=== PATIENT | female | born 1930 | race Caucasian/White ===

== ENCOUNTER 2017-09-06 14:45 | Inpatient (IN) | payer MEDICARE ==
[~2017-09-06] VITALS: Ht 160 cm; Wt 61.2 kg
[~2017-09-06 14:45] MED LIST: KEPPRA500 MG PO; LEVAQUIN500 MG PO; LEVETIRACETAM500 MG PO; LEVOTHYROXINE50 MCG PO; LOVENOX; MEROPENEM; MUCINEX DM ER1 EACH PO; NITROFURANTOIN100 MG PO; NYSTATIN1 EAC1; POLYETHYLENE GL17 GM PO
[2017-09-06 16:09] LABS: BASOPHILS # (AUTO) 0.1 (0.0-0.1); BASOPHILS % 0.3 % (0.0-1.0); EOSINOPHILS # (AUTO) 0.1 (0.0-0.4); EOSINOPHILS % 0.3 % (0.0-6.0); HEMATOCRIT 28.6 % (34.2-44.1); HEMOGLOBIN 9.6 g/dL (12.0-16.0); LYMPHOCYTES # (AUTO) 1.7 (1.0-3.2); LYMPHOCYTES % 9.7 % (18.0-39.1); MEAN CORPUSCULAR HEMOGLOBIN 29.7 pg (28-32); MEAN CORPUSCULAR HGB CONC 33.6 g/dL (31-35); MEAN CORPUSCULAR VOLUME 88.5 fL (81-99); MONOCYTES # (AUTO) 1.2 (0.2-0.8); MONOCYTES % 6.9 % (4.4-11.3); NEUTROPHILS # (AUTO) 13.7 (2.1-6.9); NEUTROPHILS % 80.2 % (38.7-80.0); PLATELET COUNT 320 x10e3/uL (140-360); RED BLOOD COUNT 3.23 x10e6/uL (3.6-5.1); RED CELL DISTRIBUTION WIDTH 14.2 % (11.7-14.4)
[2017-09-06 16:26] LABS: ALANINE AMINOTRANSFERASE 15 IU/L (0-55); ALBUMIN 3.2 g/dL (3.5-5.0); ALBUMIN/GLOBULIN RATIO 0.9 (0.8-2.0); ALKALINE PHOSPHATASE 97 IU/L (40-150); BLOOD UREA NITROGEN 18 mg/dL (7-26); BUN/CREATININE RATIO 23 (6-25); CALCIUM 8.8 mg/dL (8.4-10.2); CARBON DIOXIDE 25 mmol/L (22-29); CHLORIDE 89 mmol/L (98-107); CREATININE, SERUM 0.79 mg/dL (0.57-1.11); EST GLOMERULAR FILTRATION RATE > 60 ML/MIN (60-); GLUCOSE 116 mg/dL (74-118); SODIUM 124 mmol/L (136-145)
--- NOTE | 2017-09-06 16:39 | Diagnostic Imaging Report ---
Exam: Head CT without contrast History: Fall Comparison studies: Head CT 01/21/2017 Technique: Axial images were obtained from the skull base to the vertex. Coronal and sagittal images reconstructed from the axial data. Intravenous contrast: None Findings: Scalp/bones: Unchanged right frontal tanvir hole. Brain sulci: Appropriate for age. Ventricles: There is a stable right frontal approach ventriculostomy catheter which courses through the frontal horn of the right lateral ventricle through the septum pellucidum with tip terminating near the left foramen of Monro. There is stable appearance of the ventricular system. 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 Parenchyma: There is stable cortical encephalomalacia in the right frontal lobe along the catheter tract. Scatter hypodensities in the periventricular and deep cerebral white matter are small vessel ischemic changes. There is stable hypodensity in the left subinsular region which may reflect a chronic lacunar infarct versus prominent perivascular space. Sellar/suprasellar region: Stable hyperdense and enlargement of the hypophysis measuring up to 13 mm. Craniocervical junction: Patent foramen magnum. No Chiari one malformation. Incidental findings: Carotid siphons atherosclerotic calcification. IMPRESSION: 1. No acute intracranial abnormalities. 2. 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 3. Stable right frontal ventriculostomy catheter with no interval change in size of the ventricular system. 4. Mild supratentorial white matter small vessel ischemic changes and mild generalized cerebral volume loss. 5. Stable prominent hyperdense pituitary gland. Preliminary report was provided by neuroradiology fellow, Dr.Thach Shalini MD on 09/06/2017 5:30 PM. I have reviewed the images and agree with the findings in the preliminary report. Signed by: Dr. Crista Martin M.D. on 09/06/2017 9:02 PM
--- NOTE | 2017-09-06 18:02 | Diagnostic Imaging Report ---
TECHNIQUE: Magnetic resonance imaging of the pelvis and right hip was performed WITHOUT injected contrast using standard departmental protocols. HISTORY: Pain, fall COMPARISON: None. FINDINGS: Bone and bone marrow: Linear marrow edema within the intertrochanteric region. Bilateral sacral fractures. Nondisplaced right superior and inferior pubic ramus fractures. Nondisplaced left pubis fracture. Hip joint: Mild degenerative arthrosis of the right hip joint with labral fraying and partial-thickness cartilage loss and effusion. Left total hip arthroplasty with extensive hardware artifact. Soft tissues: The visualized tendons appear intact. IMPRESSION: Nondisplaced incomplete intertrochanteric fracture of the right femur. Insufficiency fractures: Nondisplaced bilateral sacral fractures. Nondisplaced right superior and inferior pubic ramus fracture and left left pubis fracture. Signed by: Dr. Dilshad Doan M.D. on 09/06/2017 5:58 PM
[2017-09-06 22:15] LABS: BILIRUBIN,URINE NEGATIVE (NEGATIVE); CLARITY,URINE CLEAR (CLEAR); COLOR,URINE YELLOW (YELLOW); KETONES,URINE NEGATIVE (NEGATIVE); LEUKOCYTE ESTERASE ,URINE NEGATIVE (NEGATIVE); NITRITE,URINE NEGATIVE (NEGATIVE); URINE UROBILINOGEN 0.2 mg/dL (0.2 - 1)
[2017-09-06 22:16] LABS: PROTEIN,URINE DIPSTICK 1+ (NEGATIVE)
[2017-09-06 22:26] LABS: BACTERIA,URINE MODERATE /HPF; EPITHELIAL CELLS,URINE FEW /LPF
--- NOTE | 2017-09-06 22:33 | Diagnostic Imaging Report ---
EXAMINATION: CHEST SINGLE (PORTABLE) INDICATION: Shortness of breath COMPARISON: 07/20/2017 FINDINGS: TUBES and LINES: Right-sided ENDLESS TRACK VEHICLE MECHANIC shunt catheter visualized. LUNGS: Lungs are not well inflated. There are bibasilar atelectasis. There is no evidence of pneumonia or pulmonary edema. PLEURA: No pleural effusion or pneumothorax. HEART AND MEDIASTINUM: Cardiac size is mildly enlarged. There are atherosclerotic calcifications within the aorta. BONES AND SOFT TISSUES: No acute osseous lesion. Breast implants are visualized. Soft tissues are unremarkable. UPPER ABDOMEN: No free air under the diaphragm. IMPRESSION: No acute thoracic abnormality. Signed by: Dr. Tree Jin M.D. on 09/06/2017 10:30 PM
[2017-09-06] MEDS ORDERED: SODIUM CHLORIDE FLUSH 10 ML SYR INJ PRN (22:45)
[2017-09-06] MEDS ORDERED: HYDROMORPHONE 1MG/1ML INJ IV PRN (22:45)
[2017-09-06] MEDS ORDERED: ONDANSETRON HCL INJ 2 MG/ML VIAL IV PRN (22:45)
[2017-09-07] VITALS (7 sets, daily range): BP systolic 104–145; BP diastolic 56–73
[2017-09-07] MEDS: LEVOFLOXACIN 500MG/D5W 100ML 100 ML IV SCH ×2 (01:14→21:33)
[2017-09-07] MEDS ORDERED: SODIUM CHLORIDE 0.9% 250ML 250 ML ONE (01:42)
[2017-09-07 06:01] LABS: BASOPHILS # (AUTO) 0.1 (0.0-0.1); BASOPHILS % 0.4 % (0.0-1.0); EOSINOPHILS # (AUTO) 0.3 (0.0-0.4); EOSINOPHILS % 2.1 % (0.0-6.0); HEMATOCRIT 25.3 % (34.2-44.1); HEMOGLOBIN 8.6 g/dL (12.0-16.0); LYMPHOCYTES # (AUTO) 1.9 (1.0-3.2); LYMPHOCYTES % 15.7 % (18.0-39.1); MEAN CORPUSCULAR HEMOGLOBIN 29.9 pg (28-32); MEAN CORPUSCULAR VOLUME 87.8 fL (81-99); MONOCYTES # (AUTO) 1.1 (0.2-0.8); MONOCYTES % 9.2 % (4.4-11.3); NEUTROPHILS # (AUTO) 8.6 (2.1-6.9); NEUTROPHILS % 70.6 % (38.7-80.0); PLATELET COUNT 279 x10e3/uL (140-360); RED BLOOD COUNT 2.88 x10e6/uL (3.6-5.1); RED CELL DISTRIBUTION WIDTH 14.1 % (11.7-14.4)
[2017-09-07 06:31] LABS: ALANINE AMINOTRANSFERASE 15 IU/L (0-55); ALBUMIN 2.7 g/dL (3.5-5.0); ALBUMIN/GLOBULIN RATIO 0.8 (0.8-2.0); ALKALINE PHOSPHATASE 87 IU/L (40-150); BLOOD UREA NITROGEN 18 mg/dL (7-26); BUN/CREATININE RATIO 24 (6-25); CALCIUM 8.4 mg/dL (8.4-10.2); CARBON DIOXIDE 26 mmol/L (22-29); CHLORIDE 93 mmol/L (98-107); CREATININE, SERUM 0.74 mg/dL (0.57-1.11); EST GLOMERULAR FILTRATION RATE > 60 ML/MIN (60-); GLUCOSE 101 mg/dL (74-118); SODIUM 126 mmol/L (136-145)
[2017-09-07] MEDS ORDERED: GUAIFENESIN 600MG/DEXTROMETHORPHAN 30MG TABSR PO SCH (14:00)
[2017-09-07] MEDS: GUAIFENESIN 600MG/DEXTROMETHORPHAN 30MG TABSR PO SCH ×2 (15:48→21:33)
[2017-09-07] MEDS: LEVETIRACETAM 500 MG TAB PO SCH (15:48)
[2017-09-07] MEDS: BALSAM PERU/CASTOR OIL 60 GM OINT...G. TP SCH (17:00)
[2017-09-07] MEDS: NYSTATIN 15 GM POWDER UD BTL TOP SCH (18:24)
[2017-09-08] VITALS: BP 114/58
[2017-09-08 04:00] VITALS: BP 149/65
[2017-09-08] MEDS: LEVOTHYROXINE SODIUM 50 MCG TAB PO SCH (05:28)
[2017-09-08] MEDS: GUAIFENESIN 600MG/DEXTROMETHORPHAN 30MG TABSR PO SCH ×3 (05:28→21:39)
[2017-09-08 06:26] LABS: BASOPHILS % 0.3 % (0.0-1.0); EOSINOPHILS # (AUTO) 0.2 (0.0-0.4); EOSINOPHILS % 1.4 % (0.0-6.0); HEMATOCRIT 24.1 % (34.2-44.1); HEMOGLOBIN 8.1 g/dL (12.0-16.0); LYMPHOCYTES # (AUTO) 2.1 (1.0-3.2); LYMPHOCYTES % 18.8 % (18.0-39.1); MEAN CORPUSCULAR HEMOGLOBIN 29.6 pg (28-32); MEAN CORPUSCULAR HGB CONC 33.6 g/dL (31-35); MONOCYTES % 8.9 % (4.4-11.3); NEUTROPHILS # (AUTO) 7.7 (2.1-6.9); NEUTROPHILS % 68.7 % (38.7-80.0); PLATELET COUNT 284 x10e3/uL (140-360); RED BLOOD COUNT 2.74 x10e6/uL (3.6-5.1); RED CELL DISTRIBUTION WIDTH 14.3 % (11.7-14.4)
[2017-09-08 06:51] LABS: ANION GAP 8.7 mmol/L (8-16); BLOOD UREA NITROGEN 18 mg/dL (7-26); BUN/CREATININE RATIO 26 (6-25); CALCIUM 8.1 mg/dL (8.4-10.2); CARBON DIOXIDE 26 mmol/L (22-29); CHLORIDE 95 mmol/L (98-107); EST GLOMERULAR FILTRATION RATE > 60 ML/MIN (60-); GLUCOSE 93 mg/dL (74-118); POTASSIUM 3.7 mmol/L (3.5-5.1); SODIUM 126 mmol/L (136-145)
[2017-09-08 08:00] VITALS: BP 138/77
[2017-09-08] MEDS: LEVETIRACETAM 500 MG TAB PO SCH ×2 (08:55→17:50)
[2017-09-08] MEDS: POLYETHYLENE GLYCOL 3350 17 GM PACK PO SCH (08:55)
[2017-09-08] MEDS: NYSTATIN 15 GM POWDER UD BTL TOP SCH ×2 (08:56→16:49)
[2017-09-08] MEDS: BALSAM PERU/CASTOR OIL 60 GM OINT...G. TP SCH ×2 (08:56→16:49)
[2017-09-08] MEDS ORDERED: LEVOTHYROXINE SODIUM 50 MCG TAB PO SCH (09:00)
[2017-09-08] MEDS ORDERED: HYDROMORPHONE 2MG/ML INJ IV PRN (09:15)
[2017-09-08 12:00] VITALS: BP 118/56
[2017-09-08] MEDS ORDERED: CLINDAMYCIN PHOS 900MG/ D5W 50 50 ML IV ONE (12:30)
[2017-09-08 16:00] VITALS: BP 120/67
[2017-09-08 20:00] VITALS: BP 126/75
[2017-09-08] MEDS: LEVOFLOXACIN 500MG/D5W 100ML 100 ML IV SCH (21:39)
[2017-09-08] MEDS ORDERED: SODIUM CHLORIDE 0.9% 1000ML 1,000 ML IV SCH (23:59)
[2017-09-09] VITALS: BP 101/55
[2017-09-09 04:00] VITALS: BP 144/66
[2017-09-09] MEDS: LEVOTHYROXINE SODIUM 50 MCG TAB PO SCH (05:30)
[2017-09-09] MEDS: GUAIFENESIN 600MG/DEXTROMETHORPHAN 30MG TABSR PO SCH ×3 (05:30→22:11)
[2017-09-09 08:00] VITALS: BP 122/56
[2017-09-09] MEDS: POLYETHYLENE GLYCOL 3350 17 GM PACK PO SCH (09:02)
[2017-09-09] MEDS: BALSAM PERU/CASTOR OIL 60 GM OINT...G. TP SCH ×2 (09:02→17:17)
[2017-09-09] MEDS: NYSTATIN 15 GM POWDER UD BTL TOP SCH ×2 (09:02→17:17)
[2017-09-09] MEDS: LEVETIRACETAM 500 MG TAB PO SCH ×2 (09:02→17:16)
[2017-09-09 12:00] VITALS: BP 86/38
[2017-09-09 16:00] VITALS: BP 130/58
[2017-09-09] MEDS: SODIUM CHLORIDE 1 GM TAB PO SCH (17:19)
[2017-09-09] MEDS: ENOXAPARIN SOD INJ 40 MG/0.4 ML SYR SC SCH (17:19)
[2017-09-09 20:00] VITALS: BP 133/65
[2017-09-09] MEDS: LEVOFLOXACIN 500MG/D5W 100ML 100 ML IV SCH (22:11)
[2017-09-10] VITALS (8 sets, daily range): BP systolic 119–149; BP diastolic 57–74
[2017-09-10] MEDS: LEVOTHYROXINE SODIUM 50 MCG TAB PO SCH (05:10)
[2017-09-10] MEDS: GUAIFENESIN 600MG/DEXTROMETHORPHAN 30MG TABSR PO SCH ×3 (05:12→22:18)
[2017-09-10 06:34] LABS: BASOPHILS # (AUTO) 0.1 (0.0-0.1); BASOPHILS % 0.4 % (0.0-1.0); EOSINOPHILS # (AUTO) 0.2 (0.0-0.4); EOSINOPHILS % 1.7 % (0.0-6.0); HEMATOCRIT 23.6 % (34.2-44.1); LYMPHOCYTES # (AUTO) 2.4 (1.0-3.2); LYMPHOCYTES % 17.7 % (18.0-39.1); MEAN CORPUSCULAR HEMOGLOBIN 29.5 pg (28-32); MEAN CORPUSCULAR HGB CONC 33.1 g/dL (31-35); MEAN CORPUSCULAR VOLUME 89.4 fL (81-99); MONOCYTES # (AUTO) 1.1 (0.2-0.8); MONOCYTES % 8.2 % (4.4-11.3); NEUTROPHILS # (AUTO) 9.5 (2.1-6.9); NEUTROPHILS % 70.3 % (38.7-80.0); PLATELET COUNT 343 x10e3/uL (140-360); RED BLOOD COUNT 2.64 x10e6/uL (3.6-5.1); RED CELL DISTRIBUTION WIDTH 14.4 % (11.7-14.4)
[2017-09-10 06:54] LABS: HEMOGLOBIN 7.8 g/dL (12.0-16.0)
[2017-09-10 06:58] LABS: ALANINE AMINOTRANSFERASE 15 IU/L (0-55); ALBUMIN 2.2 g/dL (3.5-5.0); ALBUMIN/GLOBULIN RATIO 0.8 (0.8-2.0); ALKALINE PHOSPHATASE 93 IU/L (40-150); ANION GAP 9.6 mmol/L (8-16); BLOOD UREA NITROGEN 15 mg/dL (7-26); BUN/CREATININE RATIO 23 (6-25); CALCIUM 7.9 mg/dL (8.4-10.2); CARBON DIOXIDE 24 mmol/L (22-29); CHLORIDE 102 mmol/L (98-107); CREATININE, SERUM 0.65 mg/dL (0.57-1.11); EST GLOMERULAR FILTRATION RATE > 60 ML/MIN (60-); GLUCOSE 90 mg/dL (74-118); POTASSIUM 3.6 mmol/L (3.5-5.1); SODIUM 132 mmol/L (136-145)
[2017-09-10 07:09] LABS: BLOOD UREA NITROGEN 15 mg/dL (7-26); GLUCOSE 90 mg/dL (74-118); OSMOLALITY,SERUM 265 mOsm/kg (278-305); SODIUM 132 mmol/L (136-145)
[2017-09-10] MEDS ORDERED: FUROSEMIDE INJ 10 MG/ML 2 ML VIAL IV SCH (07:45)
[2017-09-10] MEDS ORDERED: SODIUM CHLORIDE 0.9% 250ML 250 ML IV ONE (08:30)
[2017-09-10] MEDS ORDERED: SODIUM CHLORIDE 1 GM TAB PO SCH (09:00)
[2017-09-10] MEDS: POLYETHYLENE GLYCOL 3350 17 GM PACK PO SCH (10:15)
[2017-09-10] MEDS: LEVETIRACETAM 500 MG TAB PO SCH ×2 (10:15→17:45)
[2017-09-10] MEDS: BALSAM PERU/CASTOR OIL 60 GM OINT...G. TP SCH ×2 (10:15→17:45)
[2017-09-10] MEDS: SODIUM CHLORIDE 1 GM TAB PO SCH (10:15)
[2017-09-10] MEDS: NYSTATIN 15 GM POWDER UD BTL TOP SCH ×2 (10:15→17:45)
[2017-09-10 13:03] LABS: FREE THYROXINE INDEX 1.9161 (1.4-3.8); THYROID STIMULATING HORMONE 5.601 uIU/mL (0.350-4.940)
[2017-09-10] MEDS ORDERED: SODIUM CHLORIDE 0.9% 250ML 250 ML ONE ×3 (14:01→20:02)
[2017-09-10] MEDS ORDERED: DIPHENHYDRAMINE HCL INJ 50 MG/ML VIAL IV ONE (15:15)
[2017-09-10] MEDS ORDERED: ACETAMINOPHEN 325 MG TAB PO ONE (15:15)
--- NOTE | 2017-09-10 15:40 | Consultation ---
DATE OF CONSULTATION: September 10, 2017 NEPHROLOGY CONSULT REASON FOR ADMISSION: Falls and hip fracture. REASON FOR CONSULTATION: Hyponatremia. HISTORY OF PRESENT ILLNESS: Ms. Riggs is a very poor historian. Most of the history was obtained from chart review. Patient is an 86-year-old lady with a past medical history of brain tumor, seizure disorder, hypothyroidism, and recurrent UTI, who was admitted with increased weakness and fragility and difficulty to ambulate and had a fall at home. Mobile x-rays at home times 2 showed negative fracture and the MRI here showed that she had an intertrochanteric fracture. So far, per chart review, patient seems to have refused any kind of surgical intervention. Patient was initially noted to be hyponatremic on admission at 124 and she was started on NS and sodium, had initially improved to 126; however, had been stuck at 126 in the last couple of days and hence, her NS was stopped and she was started on sodium chloride 2 g daily tablet on the 09/09/2017 and today, her sodium is 132 and we have been consulted to assist with management of her hyponatremia. Her urine sodium was 96; however, this was after receiving a dose of sodium chloride in the morning, so unsure. Her specific gravity of the urine was a little on the higher side, so likely she was hypovolemic when she arrived and currently, she is needing assistance for feeding and appears to have severe dementia to the point where she does not recall much of her history and does not remember anything of what appended prior to coming in here. At this time, she denies any complaints and currently, she has a sitter who is feeding her. PAST MEDICAL HISTORY 1. Brain tumor. 2. Hypothyroidism. 3. Seizure disorder. 4. Recurrent UTI. PAST SURGICAL HISTORY: Has had GUT PULLER shunt placed and status post hip surgery in the past and bilateral mastectomy. SOCIAL HISTORY: No alcohol, drug or smoking use at this time. FAMILY HISTORY: Noncontributory. ALLERGIES: LISTED IN THE ELECTRONIC MEDICAL RECORD. MEDICATIONS: Reviewed in electronic medical record. REVIEW OF SYSTEMS: Unable to perform a review of system at this time as patient denies any complaints and unclear if that is accurate and unclear as to how oriented she is. PHYSICAL EXAMINATION VITAL SIGNS: Temperature 99.2, pulse rate 72 per minute, respiratory rate 18 per minute, blood pressure 142/66. GENERAL: Resting comfortably in bed. HEENT: Normocephalic, atraumatic. Moist mucous membranes. RESPIRATORY: Clear breath sounds. CARDIOVASCULAR: Regular rate and rhythm. GASTROINTESTINAL: Abdomen is soft and nontender. MUSCULOSKELETAL: No lower extremity edema. NEUROLOGICAL: Appears confused. LABORATORY DATA: Sodium 132, potassium 3.6, chloride 102, was 95 on 09/08/2017, bicarb 24, BUN 15, creatinine 0.65, serum osmolality low at 265, iron 28, TIBC 179, percent saturation 16, transferrin 128, albumin at 2.2, urine osmolality pending. Urine random sodium 96, specific gravity 1.015, protein 1+, 2+ blood, 11-20 rbc's, moderate bacteria. WBC count 13.51, hemoglobin 7.8, platelet count 343, is receiving blood transfusion today. IMAGING: Reviewed brain CT and MRI of hip and pelvis IMPRESSION AND PLAN 1. Euvolemic hyponatremia, likely secondary to poor solute intake versus syndrome of inappropriate secretion of antidiuretic hormone. Will follow up urine osmolality. Agree with discontinuing IVF and continuing with sodium chloride tablets as of now and encouraging p.o. 2. Hypothyroidism. Agreeing with checking TSH, T3, T4. Will follow up results. 3. Hip fracture, as per primary care. 4. Seizure disorder, on medications. Thank you very much, Dr. Freeman and Dr. Beaver, for this consult. I will be happy to follow this patient with you. Job#: [id number] VAS
[2017-09-10] MEDS: ENOXAPARIN SOD INJ 40 MG/0.4 ML SYR SC SCH (17:45)
[2017-09-10] MEDS: FERROUS SULFATE 325 MG TAB PO SCH (17:45)
[2017-09-10] MEDS: LEVOFLOXACIN 500MG/D5W 100ML 100 ML IV SCH (23:38)
[2017-09-11] VITALS (7 sets, daily range): BP systolic 116–169; BP diastolic 58–88
[2017-09-11] MEDS: LEVOTHYROXINE SODIUM 50 MCG TAB PO SCH (06:09)
[2017-09-11] MEDS: GUAIFENESIN 600MG/DEXTROMETHORPHAN 30MG TABSR PO SCH ×3 (06:09→22:00)
[2017-09-11 06:22] LABS: ANION GAP 11.8 mmol/L (8-16); BLOOD UREA NITROGEN 18 mg/dL (7-26); BUN/CREATININE RATIO 27 (6-25); CALCIUM 8.2 mg/dL (8.4-10.2); CARBON DIOXIDE 25 mmol/L (22-29); CHLORIDE 98 mmol/L (98-107); CREATININE, SERUM 0.67 mg/dL (0.57-1.11); EST GLOMERULAR FILTRATION RATE > 60 ML/MIN (60-); GLUCOSE 87 mg/dL (74-118); POTASSIUM 3.8 mmol/L (3.5-5.1); SODIUM 131 mmol/L (136-145)
[2017-09-11 07:30] LABS: BASOPHILS # (AUTO) 0.1 (0.0-0.1); BASOPHILS % 0.7 % (0.0-1.0); EOSINOPHILS # (AUTO) 0.4 (0.0-0.4); EOSINOPHILS % 3.5 % (0.0-6.0); HEMATOCRIT 30.7 % (34.2-44.1); HEMOGLOBIN 10.7 g/dL (12.0-16.0); LYMPHOCYTES # (AUTO) 2.3 (1.0-3.2); LYMPHOCYTES % 19.7 % (18.0-39.1); MEAN CORPUSCULAR HEMOGLOBIN 30.2 pg (28-32); MEAN CORPUSCULAR HGB CONC 34.9 g/dL (31-35); MEAN CORPUSCULAR VOLUME 86.7 fL (81-99); MONOCYTES # (AUTO) 0.9 (0.2-0.8); MONOCYTES % 7.6 % (4.4-11.3); NEUTROPHILS # (AUTO) 7.7 (2.1-6.9); NEUTROPHILS % 67.1 % (38.7-80.0); PLATELET COUNT 315 x10e3/uL (140-360); RED BLOOD COUNT 3.54 x10e6/uL (3.6-5.1); RED CELL DISTRIBUTION WIDTH 14.6 % (11.7-14.4)
[2017-09-11] MEDS: FERROUS SULFATE 325 MG TAB PO SCH ×2 (08:00→17:00)
[2017-09-11] MEDS: BALSAM PERU/CASTOR OIL 60 GM OINT...G. TP SCH ×2 (09:00→17:00)
[2017-09-11] MEDS: NYSTATIN 15 GM POWDER UD BTL TOP SCH ×2 (09:00→17:00)
[2017-09-11] MEDS: SODIUM CHLORIDE 1 GM TAB PO SCH (09:00)
[2017-09-11] MEDS: POLYETHYLENE GLYCOL 3350 17 GM PACK PO SCH (09:00)
[2017-09-11] MEDS: LEVETIRACETAM 500 MG TAB PO SCH ×2 (09:00→17:00)
[2017-09-11] MEDS: ENOXAPARIN SOD INJ 40 MG/0.4 ML SYR SC SCH (17:00)
[2017-09-11] MEDS ORDERED: LINEZOLID 600 MG/D5W 300ML 300 ML IV ONE (19:15)
[2017-09-11] MEDS: LEVOFLOXACIN 500MG/D5W 100ML 100 ML IV SCH (22:32)
[2017-09-11] MEDS ORDERED: SODIUM CHLORIDE 0.9% 1000ML 1,000 ML IV SCH (23:59)
[2017-09-12] VITALS (9 sets, daily range): BP systolic 117–168; BP diastolic 56–68
[2017-09-12] MEDS ORDERED: PANTOPRAZOLE 40 MG 10ML VIAL IV STA (01:14)
[2017-09-12] MEDS ORDERED: PANTOPRAZOLE 40 MG 10ML VIAL IV SCH (01:15)
[2017-09-12] MEDS: LEVOTHYROXINE SODIUM 50 MCG TAB PO SCH (05:13)
[2017-09-12] MEDS: GUAIFENESIN 600MG/DEXTROMETHORPHAN 30MG TABSR PO SCH ×3 (05:13→20:34)
[2017-09-12 06:33] LABS: ANION GAP 9.7 mmol/L (8-16); BLOOD UREA NITROGEN 20 mg/dL (7-26); BUN/CREATININE RATIO 28 (6-25); CALCIUM 8.2 mg/dL (8.4-10.2); CARBON DIOXIDE 27 mmol/L (22-29); CHLORIDE 99 mmol/L (98-107); CREATININE, SERUM 0.72 mg/dL (0.57-1.11); EST GLOMERULAR FILTRATION RATE > 60 ML/MIN (60-); GLUCOSE 90 mg/dL (74-118); POTASSIUM 3.7 mmol/L (3.5-5.1); SODIUM 132 mmol/L (136-145)
[2017-09-12] MEDS: FERROUS SULFATE 325 MG TAB PO SCH ×2 (08:00→17:38)
[2017-09-12] MEDS: BALSAM PERU/CASTOR OIL 60 GM OINT...G. TP SCH ×2 (09:00→17:39)
[2017-09-12] MEDS: POLYETHYLENE GLYCOL 3350 17 GM PACK PO SCH (09:00)
[2017-09-12] MEDS: NYSTATIN 15 GM POWDER UD BTL TOP SCH ×2 (09:00→20:30)
[2017-09-12] MEDS: PANTOPRAZOLE 40 MG 10ML VIAL IV SCH ×2 (09:00→20:34)
[2017-09-12] MEDS: LEVETIRACETAM 500 MG TAB PO SCH ×2 (09:00→17:38)
[2017-09-12] MEDS ORDERED: LINEZOLID 600 MG/D5W 300ML 300 ML IV ONE (10:30)
[2017-09-12] MEDS ORDERED: BUPIVACAINE HCL 0.5% INJ 30 ML VIAL INJ ONE (12:48)
[2017-09-12] MEDS ORDERED: FENTANYL CITRATE/PF 100MCG/2 ML INJ ONE (14:08)
--- NOTE | 2017-09-12 15:57 | Diagnostic Imaging Report ---
PROCEDURE:HIP RIGHT 2-3 VW (+/- PELVIS) COMPARISON:None. INDICATIONS:POST RIGHT HIP GAMMA NAIL FINDINGS: See conclusion CONCLUSION: 1. Status post right hip Gamma nail placement. Orthopedic hardware is intact. Metallic deonte and soft tissue gas consistent with postoperative changes. 2. The patient is status post left total hip replacement. 3. Extensive vascular calcifications. 4. Generalized osteopenia. Degenerative changes in the right hip joint. Kristopher Young M.D. Dictated by: Kristopher Young M.D. on 09/12/2017 at 16:05 Electronically approved by: Kristopher Young M.D. on 09/12/2017 at 16:05
--- NOTE | 2017-09-12 16:39 | Operative Report ---
DATE OF PROCEDURE: September 12, 2017 PREOPERATIVE DIAGNOSIS: Right nondisplaced intertrochanteric hip fracture. POSTOPERATIVE DIAGNOSIS: Right nondisplaced intertrochanteric hip fracture. PROCEDURE PERFORMED: Right short Gamma nail. CHALK MOLDING MACHINE OPERATOR: Elba Wilson ANESTHESIA: General endotracheal intubation anesthesia. IV FLUIDS: Per the anesthesia record. DESCRIPTION OF PROCEDURE: Ms. Riggs was taken to the operating room and placed in the supine position on the fracture table. Following induction of general anesthesia as well as endotracheal intubation, the patient's right lower extremity was placed in well-padded longitudinal traction, and the left lower extremity placed in well-padded lithotomy position. Fluoroscopic evaluation of the patient's hip joint demonstrated no clear evidence of injury. The patient had a preoperative MRI examination that confirmed edema and a partial fracture through the intertrochanteric region of the hip. The patient's lower extremity was prepped and draped in standard surgical fashion. Case was begun by creating an incision roughly at the level of the tip of the greater trochanter. This incision was carried through skin only. Blunt dissection was used to deepen the incision to the level of the tip of the trochanter. A cannulated awl was placed on the tip of the trochanter. The position of the awl was confirmed using fluoroscopy in both AP and lateral planes. The awl was then advanced within the femur. Again, the position of the awl was checked using fluoroscopy in both AP and lateral planes. A guidewire was then placed within the femoral canal. A one-step reamer was used to create a channel for the implant. An implant was chosen and inserted without difficulty. A 2nd incision was created on the lateral aspect of the femur, and this incision was again deepened to the level of the lateral aspect of the femur. The guide for the guide pin was advanced against the lateral aspect of the femur, and a guide pin was advanced from lateral to medial through the neck into the head of the femur. The position of the guide pin was checked in both AP and lateral planes and found to be appropriate. Measurements were taken, and a reamer was used to create a channel for the implant. A compression screw was then advanced over the guidewire, and compression was placed across the patient's fracture site. The compression screw was then locked to allow for further compression but to prevent rotation. The short nail was then locked with a single screw distally. The nail was then visualized in its entirety and found to be appropriately placed. All wounds were copiously irrigated, and the wounds were closed in a multilayer fashion. Sterile dressings were applied. The patient was then awakened and taken to the postanesthesia care unit in stable condition. Elba Wilson acted as first aid instructor for this case and was necessary for both prepping and draping the patient as well as retraction of soft tissues that allowed this case to be successful. Job#: [id number]
[2017-09-12] MEDS: SODIUM CHLORIDE 0.9% 1000ML 1,000 ML IV SCH ×2 (17:38→20:30)
[2017-09-12] MEDS ORDERED: SEVOFLURANE INHAL SOLN 250 ML PEN BTL ONE (18:01)
[2017-09-12] MEDS ORDERED: ONDANSETRON HCL INJ 2 MG/ML VIAL ONE (18:01)
[2017-09-12] MEDS ORDERED: GLYCOPYRROLATE INJ 1MG/ 5 ML SYR ONE (18:01)
[2017-09-12] MEDS ORDERED: EPHEDRINE SULFATE INJ 50 MG/10 ML SYR ONE (18:01)
[2017-09-12] MEDS ORDERED: ROCURONIUM BROMIDE 10 MG/ML 5ML VIAL ONE (18:01)
[2017-09-12] MEDS ORDERED: DEXAMETHASONE SOD PHOS INJ 4 MG/ML VIAL ONE (18:01)
[2017-09-12] MEDS ORDERED: NEOSTIGMINE 5 MG/5ML SYR ONE (18:01)
[2017-09-12] MEDS ORDERED: PROPOFOL IV EMULSION 10 MG/ML 20 ML VIAL ONE (18:01)
[2017-09-12] MEDS ORDERED: LIDOCAINE HCL 2% LOCAL INJ 5 ML SDV VIAL INJ ONE (18:01)
[2017-09-12] MEDS: LEVOFLOXACIN 500MG/D5W 100ML 100 ML IV SCH (22:21)
[2017-09-12] MEDS: ENOXAPARIN SOD INJ 40 MG/0.4 ML SYR SC SCH (22:30)
[2017-09-12] MEDS: LINEZOLID 600 MG/D5W 300ML 300 ML IV SCH (23:53)
[2017-09-13] VITALS (12 sets, daily range): BP systolic 78–131; BP diastolic 46–60
[2017-09-13] MEDS ORDERED: SODIUM CHLORIDE 0.9% 500ML 500 ML IV ONE (01:45)
[2017-09-13] MEDS: SODIUM CHLORIDE 0.9% 1000ML 1,000 ML IV SCH ×3 (04:30→14:30)
[2017-09-13] MEDS: GUAIFENESIN 600MG/DEXTROMETHORPHAN 30MG TABSR PO SCH ×3 (06:09→21:49)
[2017-09-13] MEDS: LEVOTHYROXINE SODIUM 50 MCG TAB PO SCH (06:09)
[2017-09-13 07:46] LABS: HEMATOCRIT 27.1 % (34.2-44.1)
[2017-09-13 08:07] LABS: ANION GAP 13.2 mmol/L (8-16); BLOOD UREA NITROGEN 20 mg/dL (7-26); BUN/CREATININE RATIO 29 (6-25); CALCIUM 7.3 mg/dL (8.4-10.2); CARBON DIOXIDE 22 mmol/L (22-29); CHLORIDE 100 mmol/L (98-107); EST GLOMERULAR FILTRATION RATE > 60 ML/MIN (60-); GLUCOSE 90 mg/dL (74-118); POTASSIUM 4.2 mmol/L (3.5-5.1); SODIUM 131 mmol/L (136-145)
[2017-09-13] MEDS ORDERED: SODIUM CHLORIDE 0.9% 1000ML 500 ML IV ONE (08:45)
[2017-09-13] MEDS ORDERED: SODIUM CHLORIDE 0.9% 500ML 500 ML ONE (08:46)
[2017-09-13] MEDS: POLYETHYLENE GLYCOL 3350 17 GM PACK PO SCH (08:50)
[2017-09-13] MEDS: FERROUS SULFATE 325 MG TAB PO SCH ×2 (08:50→18:00)
[2017-09-13] MEDS: LEVETIRACETAM 500 MG TAB PO SCH ×2 (08:50→18:00)
[2017-09-13] MEDS: PANTOPRAZOLE 40 MG 10ML VIAL IV SCH ×2 (08:50→21:49)
[2017-09-13] MEDS: BALSAM PERU/CASTOR OIL 60 GM OINT...G. TP SCH ×3 (08:50→21:49)
[2017-09-13] MEDS: NYSTATIN 15 GM POWDER UD BTL TOP SCH ×3 (08:50→21:49)
[2017-09-13] MEDS ORDERED: ALBUMIN HUMAN 12.5GM / 50ML IV ONE (10:30)
[2017-09-13] MEDS: LINEZOLID 600 MG/D5W 300ML 300 ML IV SCH (11:00)
[2017-09-13] MEDS: ENOXAPARIN SOD INJ 40 MG/0.4 ML SYR SC SCH (18:00)
[2017-09-13] MEDS ORDERED: TRAMADOL/APAP 37.5MG-325MG TAB PO PRN (18:00)
[2017-09-13] MEDS: LEVOFLOXACIN 500MG/D5W 100ML 100 ML IV SCH (21:49)
[2017-09-14] VITALS (7 sets, daily range): BP systolic 96–113; BP diastolic 44–68
[2017-09-14] MEDS: SODIUM CHLORIDE 0.9% 1000ML 1,000 ML IV SCH ×2 (02:30→18:00)
[2017-09-14] MEDS: GUAIFENESIN 600MG/DEXTROMETHORPHAN 30MG TABSR PO SCH ×3 (05:55→21:56)
[2017-09-14] MEDS: LEVOTHYROXINE SODIUM 50 MCG TAB PO SCH (05:56)
[2017-09-14 06:43] LABS: ANION GAP 10.3 mmol/L (8-16); BLOOD UREA NITROGEN 17 mg/dL (7-26); BUN/CREATININE RATIO 26 (6-25); CARBON DIOXIDE 20 mmol/L (22-29); CHLORIDE 107 mmol/L (98-107); CREATININE, SERUM 0.66 mg/dL (0.57-1.11); EST GLOMERULAR FILTRATION RATE > 60 ML/MIN (60-); GLUCOSE 100 mg/dL (74-118); POTASSIUM 3.3 mmol/L (3.5-5.1); SODIUM 134 mmol/L (136-145)
[2017-09-14 07:12] LABS: BASOPHILS % 0.1 % (0.0-1.0); EOSINOPHILS # (AUTO) 0.1 (0.0-0.4); LYMPHOCYTES # (AUTO) 1.2 (1.0-3.2); LYMPHOCYTES % 10.3 % (18.0-39.1); MEAN CORPUSCULAR HEMOGLOBIN 29.9 pg (28-32); MEAN CORPUSCULAR HGB CONC 32.9 g/dL (31-35); MEAN CORPUSCULAR VOLUME 90.8 fL (81-99); MONOCYTES % 8.2 % (4.4-11.3); NEUTROPHILS # (AUTO) 9.5 (2.1-6.9); NEUTROPHILS % 79.1 % (38.7-80.0); PLATELET COUNT 212 x10e3/uL (140-360); RED BLOOD COUNT 1.84 x10e6/uL (3.6-5.1); RED CELL DISTRIBUTION WIDTH 14.6 % (11.7-14.4)
[2017-09-14 07:14] LABS: HEMATOCRIT 16.7 % (34.2-44.1); HEMOGLOBIN 5.5 g/dL (12.0-16.0)
[2017-09-14 07:15] LABS: CALCIUM 6.9 mg/dL (8.4-10.2)
[2017-09-14] MEDS ORDERED: SODIUM CHLORIDE 0.9% 250ML 250 ML IV ONE (08:00)
[2017-09-14] MEDS ORDERED: DIATRIZOATE MEGL/DIATRIZOA SOD 30 ML BTL PO ONE (08:22)
[2017-09-14] MEDS ORDERED: SODIUM CHLORIDE 0.9% 1000ML 500 ML IV ONE (08:45)
[2017-09-14] MEDS: POLYETHYLENE GLYCOL 3350 17 GM PACK PO SCH (09:00)
[2017-09-14] MEDS: BALSAM PERU/CASTOR OIL 60 GM OINT...G. TP SCH ×2 (09:14→20:34)
[2017-09-14] MEDS: PANTOPRAZOLE 40 MG 10ML VIAL IV SCH ×2 (09:14→20:34)
[2017-09-14] MEDS: NYSTATIN 15 GM POWDER UD BTL TOP SCH ×3 (09:15→20:34)
[2017-09-14] MEDS ORDERED: IOPAMIDOL 370 MG/ML 200 ML INFUS..BTL INJ ONE (09:30)
[2017-09-14] MEDS ORDERED: SODIUM CHLORIDE 0.9% 50ML 50 ML ONE (09:30)
[2017-09-14] MEDS ORDERED: CALCIUM GLUCONATE 10% INJ 4.65 MEQ in SODIUM CHLORIDE 0.9% 50ML 50 ML IV ONE (10:15)
[2017-09-14] MEDS: LEVETIRACETAM 500 MG TAB PO SCH ×2 (10:37→18:04)
[2017-09-14] MEDS: FERROUS SULFATE 325 MG TAB PO SCH ×2 (10:37→18:04)
--- NOTE | 2017-09-14 10:41 | Diagnostic Imaging Report ---
PROCEDURE: CT ABDOMEN AND PELVIS WITH CONTRAST TECHNIQUE: The abdomen and pelvis were scanned utilizing a multidetector helical scanner from the diaphragm to the lesser trochanter after the IV administration of 100 cc of Isovue 370 and the oral administration of Gastrografin intermixed with water. Coronal and sagittal multiplanar reformations were obtained. DLP: 505.73 mGy-cm COMPARISON: None. INDICATIONS: GASTROINTESTINAL BLEED FINDINGS: LOWER THORAX: Calcified breast implants are partially visualized. Bibasilar atelectasis. HEPATOBILIARY: Enhancing mass within the right lobe of liver; segment 8 near the dome of the diaphragm likely represents a cavernous or flash fill hemangioma but this is nonspecific. Speckled areas of granulomatous calcification within the liver. No biliary ductal dilatation. SPLEEN: No splenomegaly. PANCREAS: No focal masses or ductal dilatation. ADRENALS: No adrenal nodules. KIDNEYS/URETERS: No hydronephrosis, stones, or solid mass lesions. PELVIC ORGANS/BLADDER: Jarquin catheter within the bladder. PERITONEUM / RETROPERITONEUM: No evidence of a retroperitoneal hematoma. Partially visualized ventriculoperitoneal shunt line present. LYMPH NODES: No lymphadenopathy. VESSELS: Diffuse vascular calcification. There are 2 right renal arteries. GI TRACT: No distention or wall thickening. Sigmoid colon diverticula. Linear high density metallic substance within the rectum. BONES AND SOFT TISSUES: There are postoperative changes involving the right hip; status post IM bertin and femoral neck screw. There is air and hematoma present situated superior to the trochanter. Nondisplaced fractures of the right superior and inferior rami. Fracture line extends to the superior acetabulum on the right. Left total hip replacement. Degenerative changes of the spine. Partial compression fracture of T12 and T9. Disc space narrowing at L5-S1. IMPRESSION: 1. Status post operative reduction of a right hip fracture with intramedullary bertin and thermal neck screw. 2. Postoperative changes in the soft tissues lateral and superior to the hip fracture with air and hematoma present. 3. Nonspecific enhancing mass in the right lobe of the liver. 4. No evidence of a retroperitoneal hematoma. Aaron Hayes D.O. Dictated by: Aaron Hayes D.O. on 09/14/2017 at 10:49 Electronically approved by: Aaron Hayes D.O. on 09/14/2017 at 10:49
[2017-09-14] MEDS ORDERED: POTASSIUM CHLORIDE 10 MEQ TABCR PO NR (11:00)
[2017-09-14] MEDS ORDERED: SODIUM CHLORIDE 0.9% 250ML 250 ML ONE (11:25)
[2017-09-14] MEDS: OYST-CAL-D 500MG TABLET PO SCH ×2 (12:19→18:04)
[2017-09-14] MEDS: ACETAMINOPHEN 325 MG TAB PO PRN (13:47)
[2017-09-14] MEDS: FUROSEMIDE INJ 10 MG/ML 2 ML VIAL IV PRN ×2 (15:36→19:59)
[2017-09-14] MEDS: ENOXAPARIN SOD INJ 40 MG/0.4 ML SYR SC SCH (16:57)
[2017-09-14] MEDS: LEVOFLOXACIN 500MG/D5W 100ML 100 ML IV SCH (22:45)
[2017-09-15] VITALS (11 sets, daily range): BP systolic 105–144; BP diastolic 51–78
[2017-09-15] MEDS: GUAIFENESIN 600MG/DEXTROMETHORPHAN 30MG TABSR PO SCH ×3 (05:54→21:00)
[2017-09-15] MEDS: LEVOTHYROXINE SODIUM 50 MCG TAB PO SCH (05:54)
[2017-09-15] MEDS: SODIUM CHLORIDE 0.9% 1000ML 1,000 ML IV SCH ×2 (06:30→19:00)
[2017-09-15 06:39] LABS: BASOPHILS % 0.3 % (0.0-1.0); EOSINOPHILS # (AUTO) 0.2 (0.0-0.4); EOSINOPHILS % 1.8 % (0.0-6.0); HEMATOCRIT 24.2 % (34.2-44.1); HEMOGLOBIN 8.2 g/dL (12.0-16.0); LYMPHOCYTES # (AUTO) 1.1 (1.0-3.2); MEAN CORPUSCULAR HEMOGLOBIN 29.6 pg (28-32); MEAN CORPUSCULAR HGB CONC 33.9 g/dL (31-35); MEAN CORPUSCULAR VOLUME 87.4 fL (81-99); MONOCYTES # (AUTO) 1.2 (0.2-0.8); MONOCYTES % 9.7 % (4.4-11.3); NEUTROPHILS # (AUTO) 9.7 (2.1-6.9); NEUTROPHILS % 77.7 % (38.7-80.0); PLATELET COUNT 203 x10e3/uL (140-360); RED BLOOD COUNT 2.77 x10e6/uL (3.6-5.1); RED CELL DISTRIBUTION WIDTH 15.9 % (11.7-14.4)
[2017-09-15 06:51] LABS: BLOOD UREA NITROGEN 20 mg/dL (7-26); BUN/CREATININE RATIO 26 (6-25); CALCIUM 7.8 mg/dL (8.4-10.2); CARBON DIOXIDE 24 mmol/L (22-29); CHLORIDE 102 mmol/L (98-107); CREATININE, SERUM 0.76 mg/dL (0.57-1.11); EST GLOMERULAR FILTRATION RATE > 60 ML/MIN (60-); GLUCOSE 103 mg/dL (74-118); SODIUM 135 mmol/L (136-145)
[2017-09-15] MEDS: LEVETIRACETAM 500 MG TAB PO SCH ×2 (08:31→16:44)
[2017-09-15] MEDS: OYST-CAL-D 500MG TABLET PO SCH ×2 (08:31→16:44)
[2017-09-15] MEDS: FERROUS SULFATE 325 MG TAB PO SCH ×2 (08:31→16:44)
[2017-09-15] MEDS: PANTOPRAZOLE 40 MG 10ML VIAL IV SCH ×2 (08:31→21:00)
[2017-09-15] MEDS: POLYETHYLENE GLYCOL 3350 17 GM PACK PO SCH (08:31)
[2017-09-15] MEDS: NYSTATIN 15 GM POWDER UD BTL TOP SCH ×3 (08:32→21:00)
[2017-09-15] MEDS: BALSAM PERU/CASTOR OIL 60 GM OINT...G. TP SCH ×2 (08:32→21:00)
[2017-09-15] MEDS: ACETAMINOPHEN 325 MG TAB PO PRN (10:40)
[2017-09-15] MEDS ORDERED: POTASSIUM CHLORIDE 20 MEQ TAB CR PO ONE (11:00)
[2017-09-15] MEDS ORDERED: POTASSIUM CHLORIDE 10MEQ/100ML 200 ML INJ ONE ×2 (11:30)
[2017-09-15] MEDS ORDERED: KETOROLAC TROMETHAMINE 30 MG/ML VIAL IV PRN (11:45)
[2017-09-15] MEDS ORDERED: POTASSIUM CHLORIDE 10MEQ/100ML 200 ML INJ PRN (13:30)
[2017-09-15] MEDS ORDERED: POTASSIUM CHLORIDE 10MEQ/100ML 100 ML IV ONE ×2 (15:00→16:00)
[2017-09-15] MEDS: ENOXAPARIN SOD INJ 40 MG/0.4 ML SYR SC SCH (16:05)
[2017-09-15] MEDS: LEVOFLOXACIN 500MG/D5W 100ML 100 ML IV SCH (23:00)
[2017-09-16 05:05] VITALS: BP 120/59
[2017-09-16] MEDS: LEVOTHYROXINE SODIUM 50 MCG TAB PO SCH (06:16)
[2017-09-16] MEDS: GUAIFENESIN 600MG/DEXTROMETHORPHAN 30MG TABSR PO SCH ×3 (06:16→21:15)
[2017-09-16 06:38] LABS: BASOPHILS % 0.3 % (0.0-1.0); EOSINOPHILS # (AUTO) 0.2 (0.0-0.4); EOSINOPHILS % 1.6 % (0.0-6.0); HEMATOCRIT 23.2 % (34.2-44.1); LYMPHOCYTES # (AUTO) 1.4 (1.0-3.2); LYMPHOCYTES % 11.6 % (18.0-39.1); MEAN CORPUSCULAR HEMOGLOBIN 29.3 pg (28-32); MEAN CORPUSCULAR HGB CONC 33.2 g/dL (31-35); MEAN CORPUSCULAR VOLUME 88.2 fL (81-99); MONOCYTES % 8.6 % (4.4-11.3); NEUTROPHILS % 76.1 % (38.7-80.0); PLATELET COUNT 209 x10e3/uL (140-360); RED BLOOD COUNT 2.63 x10e6/uL (3.6-5.1); RED CELL DISTRIBUTION WIDTH 16.4 % (11.7-14.4)
[2017-09-16 06:48] LABS: HEMOGLOBIN 7.7 g/dL (12.0-16.0)
[2017-09-16 07:17] LABS: ANION GAP 7.4 mmol/L (8-16); BLOOD UREA NITROGEN 21 mg/dL (7-26); BUN/CREATININE RATIO 32 (6-25); CALCIUM 7.9 mg/dL (8.4-10.2); CARBON DIOXIDE 26 mmol/L (22-29); CHLORIDE 102 mmol/L (98-107); CREATININE, SERUM 0.66 mg/dL (0.57-1.11); EST GLOMERULAR FILTRATION RATE > 60 ML/MIN (60-); GLUCOSE 103 mg/dL (74-118); MAGNESIUM 1.3 MG/DL (1.3-2.1); POTASSIUM 3.4 mmol/L (3.5-5.1); SODIUM 132 mmol/L (136-145)
[2017-09-16] MEDS: SODIUM CHLORIDE 0.9% 1000ML 1,000 ML IV SCH (07:30)
[2017-09-16] MEDS: FERROUS SULFATE 325 MG TAB PO SCH (08:22)
[2017-09-16] MEDS: PANTOPRAZOLE 40 MG 10ML VIAL IV SCH ×2 (08:22→21:14)
[2017-09-16] MEDS: LEVETIRACETAM 500 MG TAB PO SCH ×2 (08:22→16:38)
[2017-09-16] MEDS: OYST-CAL-D 500MG TABLET PO SCH ×2 (08:23→16:38)
[2017-09-16] MEDS: POLYETHYLENE GLYCOL 3350 17 GM PACK PO SCH (08:23)
[2017-09-16] MEDS: NYSTATIN 15 GM POWDER UD BTL TOP SCH ×3 (08:23→21:14)
[2017-09-16] MEDS: BALSAM PERU/CASTOR OIL 60 GM OINT...G. TP SCH ×2 (08:23→21:14)
[2017-09-16 08:40] VITALS: BP 126/56
[2017-09-16] MEDS: SODIUM FERRIC GLUCONATE COMPLX 125 MG in SODIUM CHLORIDE 0.9% 100 ML 100 ML IV SCH (08:45)
[2017-09-16 09:02] VITALS: BP 126/56
[2017-09-16] MEDS ORDERED: POTASSIUM CHLORIDE 20 MEQ TAB CR PO ONE (12:00)
[2017-09-16 12:32] VITALS: BP 119/55
[2017-09-16] MEDS: ENOXAPARIN SOD INJ 40 MG/0.4 ML SYR SC SCH (16:19)
[2017-09-16 16:43] VITALS: BP 151/63
[2017-09-16] MEDS ORDERED: DIPHENHYDRAMINE HCL 25 MG CAP PO ONE (17:00)
[2017-09-16 20:00] VITALS: BP 136/59
[2017-09-17] VITALS: BP 126/78
[2017-09-17 04:00] VITALS: BP 137/62
[2017-09-17] MEDS: LEVOTHYROXINE SODIUM 50 MCG TAB PO SCH (05:13)
[2017-09-17] MEDS: GUAIFENESIN 600MG/DEXTROMETHORPHAN 30MG TABSR PO SCH ×3 (05:13→21:32)
[2017-09-17 06:58] LABS: BASOPHILS # (AUTO) 0.1 (0.0-0.1); BASOPHILS % 0.4 % (0.0-1.0); EOSINOPHILS # (AUTO) 0.3 (0.0-0.4); EOSINOPHILS % 2.8 % (0.0-6.0); HEMATOCRIT 23.3 % (34.2-44.1); LYMPHOCYTES # (AUTO) 1.6 (1.0-3.2); LYMPHOCYTES % 13.4 % (18.0-39.1); MEAN CORPUSCULAR HEMOGLOBIN 29.8 pg (28-32); MEAN CORPUSCULAR HGB CONC 33.5 g/dL (31-35); MEAN CORPUSCULAR VOLUME 88.9 fL (81-99); MONOCYTES # (AUTO) 1.2 (0.2-0.8); MONOCYTES % 10.5 % (4.4-11.3); NEUTROPHILS # (AUTO) 8.3 (2.1-6.9); NEUTROPHILS % 71.1 % (38.7-80.0); PLATELET COUNT 254 x10e3/uL (140-360); RED BLOOD COUNT 2.62 x10e6/uL (3.6-5.1); RED CELL DISTRIBUTION WIDTH 16.5 % (11.7-14.4)
[2017-09-17 07:17] LABS: HEMOGLOBIN 7.8 g/dL (12.0-16.0)
[2017-09-17 07:39] LABS: ANION GAP 11.6 mmol/L (8-16); BLOOD UREA NITROGEN 20 mg/dL (7-26); BUN/CREATININE RATIO 32 (6-25); CALCIUM 8.1 mg/dL (8.4-10.2); CARBON DIOXIDE 26 mmol/L (22-29); CHLORIDE 105 mmol/L (98-107); CREATININE, SERUM 0.62 mg/dL (0.57-1.11); EST GLOMERULAR FILTRATION RATE > 60 ML/MIN (60-); GLUCOSE 98 mg/dL (74-118); MAGNESIUM 1.5 MG/DL (1.3-2.1); POTASSIUM 3.6 mmol/L (3.5-5.1); SODIUM 139 mmol/L (136-145)
[2017-09-17 08:19] VITALS: BP 124/56
[2017-09-17] MEDS: BALSAM PERU/CASTOR OIL 60 GM OINT...G. TP SCH ×2 (09:00→20:56)
[2017-09-17] MEDS: LEVETIRACETAM 500 MG TAB PO SCH ×2 (09:00→17:59)
[2017-09-17] MEDS: OYST-CAL-D 500MG TABLET PO SCH ×2 (09:00→21:32)
[2017-09-17] MEDS ORDERED: SODIUM CHLORIDE 0.9% 250ML 250 ML IV ONE ×2 (09:00→15:00)
[2017-09-17] MEDS: NYSTATIN 15 GM POWDER UD BTL TOP SCH ×3 (09:00→20:56)
[2017-09-17] MEDS: PANTOPRAZOLE 40 MG 10ML VIAL IV SCH ×2 (09:00→21:32)
[2017-09-17] MEDS: POLYETHYLENE GLYCOL 3350 17 GM PACK PO SCH (09:00)
[2017-09-17] MEDS: SODIUM FERRIC GLUCONATE COMPLX 125 MG in SODIUM CHLORIDE 0.9% 100 ML 100 ML IV SCH (09:00)
[2017-09-17] MEDS ORDERED: FUROSEMIDE INJ 10 MG/ML 2 ML VIAL IV ONE ×2 (09:00→21:00)
[2017-09-17 13:19] VITALS: BP 123/60
[2017-09-17] MEDS ORDERED: SODIUM CHLORIDE 0.9% 250ML 250 ML ONE (14:37)
[2017-09-17 16:33] VITALS: BP 125/60
[2017-09-17] MEDS: ENOXAPARIN SOD INJ 40 MG/0.4 ML SYR SC SCH (17:00)
[2017-09-17] MEDS: ACETAMINOPHEN 325 MG TAB PO PRN (18:00)
[2017-09-17] MEDS ORDERED: MAGNESIUM SULFATE 2GM/50ML 50 ML IV ONE ×2 (18:30→21:00)
[2017-09-17 20:00] VITALS: BP 110/53
[2017-09-17] MEDS ORDERED: DIPHENHYDRAMINE HCL INJ 50 MG/ML VIAL IV ONE (20:30)
[2017-09-17] MEDS ORDERED: ACETAMINOPHEN 325 MG TAB PO ONE (20:30)
[2017-09-18] VITALS (7 sets, daily range): BP systolic 101–146; BP diastolic 46–63
[2017-09-18] MEDS ORDERED: SODIUM CHLORIDE 0.9% 250ML 250 ML ONE ×2 (00:05→12:41)
[2017-09-18] MEDS ORDERED: SODIUM CHLORIDE 0.9% 250ML 250 ML IV ONE (01:15)
[2017-09-18] MEDS: FUROSEMIDE INJ 10 MG/ML 2 ML VIAL IV PRN (04:34)
[2017-09-18] MEDS: LEVOTHYROXINE SODIUM 50 MCG TAB PO SCH (05:46)
[2017-09-18] MEDS: GUAIFENESIN 600MG/DEXTROMETHORPHAN 30MG TABSR PO SCH ×3 (05:46→21:50)
[2017-09-18 06:56] LABS: BASOPHILS # (AUTO) 0.1 (0.0-0.1); BASOPHILS % 0.7 % (0.0-1.0); EOSINOPHILS # (AUTO) 0.5 (0.0-0.4); EOSINOPHILS % 3.9 % (0.0-6.0); HEMATOCRIT 33.6 % (34.2-44.1); HEMOGLOBIN 11.7 g/dL (12.0-16.0); LYMPHOCYTES # (AUTO) 1.9 (1.0-3.2); LYMPHOCYTES % 13.8 % (18.0-39.1); MEAN CORPUSCULAR HEMOGLOBIN 30.3 pg (28-32); MEAN CORPUSCULAR HGB CONC 34.8 g/dL (31-35); MONOCYTES # (AUTO) 1.6 (0.2-0.8); NEUTROPHILS # (AUTO) 9.1 (2.1-6.9); NEUTROPHILS % 67.4 % (38.7-80.0); PLATELET COUNT 262 x10e3/uL (140-360); RED BLOOD COUNT 3.86 x10e6/uL (3.6-5.1); RED CELL DISTRIBUTION WIDTH 15.6 % (11.7-14.4)
[2017-09-18 07:27] LABS: ANION GAP 13.2 mmol/L (8-16); BLOOD UREA NITROGEN 26 mg/dL (7-26); BUN/CREATININE RATIO 41 (6-25); CALCIUM 8.5 mg/dL (8.4-10.2); CARBON DIOXIDE 26 mmol/L (22-29); CHLORIDE 102 mmol/L (98-107); CREATININE, SERUM 0.64 mg/dL (0.57-1.11); EST GLOMERULAR FILTRATION RATE > 60 ML/MIN (60-); GLUCOSE 92 mg/dL (74-118); POTASSIUM 3.2 mmol/L (3.5-5.1); SODIUM 138 mmol/L (136-145)
[2017-09-18] MEDS: POLYETHYLENE GLYCOL 3350 17 GM PACK PO SCH (09:00)
[2017-09-18] MEDS: SODIUM FERRIC GLUCONATE COMPLX 125 MG in SODIUM CHLORIDE 0.9% 100 ML 100 ML IV SCH (09:00)
[2017-09-18] MEDS: BALSAM PERU/CASTOR OIL 60 GM OINT...G. TP SCH ×2 (10:00→21:50)
[2017-09-18] MEDS: NYSTATIN 15 GM POWDER UD BTL TOP SCH ×3 (10:00→21:50)
[2017-09-18] MEDS: LEVETIRACETAM 500 MG TAB PO SCH ×2 (10:15→17:30)
[2017-09-18] MEDS: OYST-CAL-D 500MG TABLET PO SCH ×2 (10:15→21:50)
[2017-09-18] MEDS: PANTOPRAZOLE 40 MG 10ML VIAL IV SCH ×2 (10:15→21:50)
[2017-09-18] MEDS ORDERED: POTASSIUM CHLORIDE 20MEQ/100ML 200 ML IV ONE (11:00)
--- NOTE | 2017-09-18 11:48 | Consultation ---
DATE OF CONSULTATION: September 14, 2017 CONSULTATION TO: Dr. Paul Freeman Sada Riggs is an 86-year-old white female who was referred to me for evaluation of anemia. No history of hematochezia, melena, hematuria, hematemesis. 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 SOCIAL HISTORY: Noncontributory. FAMILY HISTORY: Noncontributory. ALLERGIES: NONE. MEDICATIONS AT THIS TIME 1. Levaquin. 2. Ondansetron. 3. Sodium chloride. 4. Dextromethorphan with guaifenesin. 5. Synthroid. 6. Lovenox. 7. Ferrous sulfate. 8. Calcium carbonate. 9. Tramadol with Tylenol. 10. Protonix. 11. Furosemide. 12. Calcium carbonate. REVIEW OF SYSTEMS HEENT: Normal. CARDIAC: History of hypertension. RESPIRATORY: Normal. GI: Has a mass in the right lobe of the liver by CAT scan. : Normal. MUSCULOSKELETAL: Normal. SKIN AND BREASTS: Normal. NEUROENDOCRINE: History of hypothyroidism. PHYSICAL EXAMINATION GENERAL: A cachectic female, anemic, no palpable adenopathy. HEART: Within normal limits. LUNGS: Clear. BREASTS: Exam deferred at her request. ABDOMEN: Obese. Liver is felt 1 inch below the costal margin. RECTAL AND VAGINAL: Examination deferred. CENTRAL NERVOUS SYSTEM: Essentially normal. LABS: Hemoglobin of 5.5, hematocrit 16.7, white count 12,000, platelets 212,000 with normal indices. Sodium 134, potassium 3.3, chloride 107, CO2 20, BUN 17, creatinine 0.6, glucose 100, bilirubin 0.3, SGOT 15, SGPT 15, alkaline phosphatase 93. IMPRESSION 1. Hyponatremia (131), possible inappropriate antidiuretic hormone secretion. 2. Hypothyroidism. 3. History of a fracture. 4. Gastrointestinal bleed (stool for occult blood positive). 5. Hypocalcemia. 6. Hypokalemia. 7. Right hip intramedullary bertin. 8. Mass, right lobe of the liver. 9. Third ventricle brain mass. 10. Poor performance status. Plan is to give her best supportive care. Blood transfusion to keep the hemoglobin close to 8 g. Job#: [id number]
[2017-09-18] MEDS ORDERED: POTASSIUM CHLORIDE 20 MEQ TAB CR PO ONE (13:00)
[2017-09-18] MEDS: ENOXAPARIN SOD INJ 40 MG/0.4 ML SYR SC SCH (17:30)
[2017-09-19] VITALS (8 sets, daily range): BP systolic 111–136; BP diastolic 53–60
[2017-09-19] MEDS: GUAIFENESIN 600MG/DEXTROMETHORPHAN 30MG TABSR PO SCH ×3 (06:27→22:03)
[2017-09-19] MEDS: LEVOTHYROXINE SODIUM 50 MCG TAB PO SCH (06:27)
[2017-09-19 06:28] LABS: BASOPHILS # (AUTO) 0.1 (0.0-0.1); BASOPHILS % 0.6 % (0.0-1.0); EOSINOPHILS # (AUTO) 0.3 (0.0-0.4); EOSINOPHILS % 2.5 % (0.0-6.0); HEMATOCRIT 32.6 % (34.2-44.1); LYMPHOCYTES # (AUTO) 1.7 (1.0-3.2); LYMPHOCYTES % 12.6 % (18.0-39.1); MEAN CORPUSCULAR HEMOGLOBIN 30.1 pg (28-32); MEAN CORPUSCULAR HGB CONC 33.7 g/dL (31-35); MEAN CORPUSCULAR VOLUME 89.3 fL (81-99); MONOCYTES # (AUTO) 1.4 (0.2-0.8); MONOCYTES % 10.6 % (4.4-11.3); NEUTROPHILS # (AUTO) 9.5 (2.1-6.9); NEUTROPHILS % 71.2 % (38.7-80.0); PLATELET COUNT 265 x10e3/uL (140-360); RED BLOOD COUNT 3.65 x10e6/uL (3.6-5.1); RED CELL DISTRIBUTION WIDTH 15.9 % (11.7-14.4)
[2017-09-19 06:55] LABS: ANION GAP 10.2 mmol/L (8-16); BLOOD UREA NITROGEN 28 mg/dL (7-26); BUN/CREATININE RATIO 41 (6-25); CALCIUM 8.3 mg/dL (8.4-10.2); CARBON DIOXIDE 29 mmol/L (22-29); CHLORIDE 98 mmol/L (98-107); CREATININE, SERUM 0.68 mg/dL (0.57-1.11); EST GLOMERULAR FILTRATION RATE > 60 ML/MIN (60-); GLUCOSE 93 mg/dL (74-118); POTASSIUM 3.2 mmol/L (3.5-5.1); SODIUM 134 mmol/L (136-145)
[2017-09-19] MEDS: BALSAM PERU/CASTOR OIL 60 GM OINT...G. TP SCH ×2 (08:33→21:21)
[2017-09-19] MEDS: PANTOPRAZOLE 40 MG 10ML VIAL IV SCH ×2 (08:33→21:00)
[2017-09-19] MEDS: POLYETHYLENE GLYCOL 3350 17 GM PACK PO SCH (08:33)
[2017-09-19] MEDS: LEVETIRACETAM 500 MG TAB PO SCH ×2 (08:33→17:05)
[2017-09-19] MEDS: OYST-CAL-D 500MG TABLET PO SCH ×2 (08:33→21:00)
[2017-09-19] MEDS: NYSTATIN 15 GM POWDER UD BTL TOP SCH ×3 (08:33→21:00)
[2017-09-19] MEDS ORDERED: POTASSIUM CHLORIDE 10 MEQ TABCR PO NR (12:30)
[2017-09-19] MEDS ORDERED: POTASSIUM CHLORIDE 20MEQ/100ML 100 ML IV ONE (14:00)
[2017-09-19] MEDS: ENOXAPARIN SOD INJ 40 MG/0.4 ML SYR SC SCH (17:05)
[2017-09-20] VITALS (9 sets, daily range): BP systolic 117–135; BP diastolic 53–62
[2017-09-20] MEDS: LEVOTHYROXINE SODIUM 50 MCG TAB PO SCH (06:00)
[2017-09-20] MEDS: GUAIFENESIN 600MG/DEXTROMETHORPHAN 30MG TABSR PO SCH ×3 (06:00→22:00)
[2017-09-20 08:13] LABS: BASOPHILS # (AUTO) 0.1 (0.0-0.1); BASOPHILS % 0.7 % (0.0-1.0); EOSINOPHILS # (AUTO) 0.4 (0.0-0.4); EOSINOPHILS % 3.6 % (0.0-6.0); HEMATOCRIT 33.5 % (34.2-44.1); HEMOGLOBIN 10.9 g/dL (12.0-16.0); LYMPHOCYTES # (AUTO) 1.8 (1.0-3.2); MEAN CORPUSCULAR HEMOGLOBIN 30.2 pg (28-32); MEAN CORPUSCULAR HGB CONC 32.5 g/dL (31-35); MEAN CORPUSCULAR VOLUME 92.8 fL (81-99); MONOCYTES # (AUTO) 1.2 (0.2-0.8); MONOCYTES % 10.9 % (4.4-11.3); NEUTROPHILS # (AUTO) 7.2 (2.1-6.9); NEUTROPHILS % 65.9 % (38.7-80.0); PLATELET COUNT 288 x10e3/uL (140-360); RED BLOOD COUNT 3.61 x10e6/uL (3.6-5.1); RED CELL DISTRIBUTION WIDTH 16.1 % (11.7-14.4)
[2017-09-20] MEDS: PANTOPRAZOLE 40 MG 10ML VIAL IV SCH ×2 (08:28→20:56)
[2017-09-20] MEDS: LEVETIRACETAM 500 MG TAB PO SCH ×2 (08:28→17:03)
[2017-09-20] MEDS: OYST-CAL-D 500MG TABLET PO SCH ×2 (08:28→20:56)
[2017-09-20] MEDS: BALSAM PERU/CASTOR OIL 60 GM OINT...G. TP SCH ×2 (08:28→20:56)
[2017-09-20] MEDS: POLYETHYLENE GLYCOL 3350 17 GM PACK PO SCH (08:28)
[2017-09-20] MEDS: NYSTATIN 15 GM POWDER UD BTL TOP SCH ×3 (08:28→21:00)
[2017-09-20 08:32] LABS: ALANINE AMINOTRANSFERASE 27 IU/L (0-55); ALBUMIN 2.2 g/dL (3.5-5.0); ALBUMIN/GLOBULIN RATIO 0.7 (0.8-2.0); ALKALINE PHOSPHATASE 142 IU/L (40-150); ANION GAP 11.1 mmol/L (8-16); BLOOD UREA NITROGEN 26 mg/dL (7-26); BUN/CREATININE RATIO 42 (6-25); CALCIUM 8.3 mg/dL (8.4-10.2); CARBON DIOXIDE 27 mmol/L (22-29); CHLORIDE 106 mmol/L (98-107); CREATININE, SERUM 0.62 mg/dL (0.57-1.11); EST GLOMERULAR FILTRATION RATE > 60 ML/MIN (60-); GLUCOSE 88 mg/dL (74-118); POTASSIUM 4.1 mmol/L (3.5-5.1); SODIUM 140 mmol/L (136-145)
[2017-09-20] MEDS: ENOXAPARIN SOD INJ 40 MG/0.4 ML SYR SC SCH (17:03)
[2017-09-21 00:55] VITALS: BP 132/63
[2017-09-21 04:00] VITALS: BP 126/62
[2017-09-21] MEDS: GUAIFENESIN 600MG/DEXTROMETHORPHAN 30MG TABSR PO SCH ×2 (06:07→14:35)
[2017-09-21] MEDS: LEVOTHYROXINE SODIUM 50 MCG TAB PO SCH (06:07)
[2017-09-21 08:12] VITALS: BP 112/57
[2017-09-21] MEDS: OYST-CAL-D 500MG TABLET PO SCH (10:00)
[2017-09-21] MEDS: LEVETIRACETAM 500 MG TAB PO SCH ×2 (10:00→17:39)
[2017-09-21] MEDS: NYSTATIN 15 GM POWDER UD BTL TOP SCH ×2 (10:00→15:00)
[2017-09-21] MEDS: POLYETHYLENE GLYCOL 3350 17 GM PACK PO SCH (10:00)
[2017-09-21] MEDS: BALSAM PERU/CASTOR OIL 60 GM OINT...G. TP SCH (10:00)
[2017-09-21] MEDS: PANTOPRAZOLE 40 MG 10ML VIAL IV SCH (10:00)
[2017-09-21 11:11] VITALS: BP 112/57
[2017-09-21 13:40] VITALS: BP 146/63
[2017-09-21 16:49] VITALS: BP 146/67
[2017-09-21] MEDS: ENOXAPARIN SOD INJ 40 MG/0.4 ML SYR SC SCH (17:00)
== END 2017-09-21 17:40 | DRG 956 ==
LOC: ER 14:45 → ERHOLD 23:08 → MED/SURG2 23:15 → MED/SURG 09-12 20:15
PROC: 30233N1 Transfusion of Nonautologous Red Blood Cells into Peripheral Vein, Percutaneous Approach (ICD-10-PCS; 2017-09-10)
PROC: 0QS636Z Reposition Right Upper Femur with Intramedullary Internal Fixation Device, Percutaneous Approach (ICD-10-PCS; principal; 2017-09-12 13:01)
DX: S72.144A Nondisplaced intertrochanteric fracture of right femur, initial encounter for closed fracture (principal); S32.10XA Unspecified fracture of sacrum, initial encounter for closed fracture; S32.591A Other specified fracture of right pubis, initial encounter for closed fracture; E87.1 Hypo-osmolality and hyponatremia; F03.90 Unspecified dementia, unspecified severity, without behavioral disturbance, psychotic disturbance, mood disturbance, and anxiety; E83.42 Hypomagnesemia; S32.592A Other specified fracture of left pubis, initial encounter for closed fracture; E83.51 Hypocalcemia; W06.XXXA Fall from bed, initial encounter; Y92.003 Bedroom of unspecified non-institutional (private) residence as the place of occurrence of the external cause; E87.6 Hypokalemia; E03.9 Hypothyroidism, unspecified; D63.8 Anemia in other chronic diseases classified elsewhere; D50.9 Iron deficiency anemia, unspecified; Z98.2 Presence of cerebrospinal fluid drainage device; Z86.011 Personal history of benign neoplasm of the brain; G40.909 Epilepsy, unspecified, not intractable, without status epilepticus
CPT/HCPCS: 36415; 36430; 70450; 71010; 72195; 74177; 76000; 80048; 80053; 81001; 82270; 82607; 82947; 82948; 83540; 83735; 83935; 84295; 84300; 84436; 84443; 84466; 84479; 84520; 85014; 85018; 85025; 85045; 86850; 86900; 86920; 87086; 93005; 97139; 99284; C1713; J1100; J1200; J1650; J1940; J1956; J2001; J2020; J2405; J2916; J3480; J7030; J7040; J7050; P9016; Q9967

== ENCOUNTER 2017-12-07 16:33 | Inpatient (IN) | payer MEDICARE ==
[~2017-12-07] VITALS: Ht 157.5 cm; Wt 46.8 kg
--- OUTSIDE RECORDS SUMMARY | 2017-12-07 16:40 | XMS REPORT | Clinical Summary ---
Author Author [facility] Address Unknown Phone Unavailable Care Team Providers Care Car Conditioner Name Role Phone PCP Unavailable Allergies Active Allergy Reactions Severity Noted Date Comments Sulfa (Sulfonamide Other (See Comments) 08/04/2015 Childhood reaction! Not Antibiotics) sure what happened. Sulfur 04/18/2016 Current Medications Prescription Sig. Disp. Refills Start End Date Status Date levETIRAcetam (KEPPRA) Take 500 mg by mouth. Active 500 MG tablet levothyroxine (SYNTHROID, Take by mouth. Active LEVOTHROID) 25 MCG tablet metroNIDAZOLE (FLAGYL) Take 500 mg by mouth 4 Active 500 MG tablet (four) times daily. levofloxacin (LEVAQUIN) Take 500 mg by mouth Active 500 MG tablet daily. hydrocortisone 1 % cream Apply to affected area 2 15 g 0 05/20/20 times daily. 16 17 Active Problems Problem Noted Date Syncope 04/18/2016 Brain tumor (HCC) 08/05/2015 Family History Medical History Relation Name Comments Heart disease Brother Hypertension Maternal Grandmother Stroke Paternal Grandmother Relation Name Status Comments Brother Maternal Grandmother Paternal Grandmother Social History Tobacco Use Types Packs/Day Years Used Date Never Smoker Smokeless Tobacco: Never Used Alcohol Use Drinks/Week oz/Week Comments No Sex Assigned at Date Recorded Not on file Last Filed Vital Signs Not on file Plan of Treatment Not on file Implants Implanted Type Area Engineering Tech Device Expiration Model / Identifier Date Serial / Lot Sealant,Floseal Hemostatic Matrix Cement/Eitan Right: DONALD 2016 [id number] / 10ml - [id number] ler/Adhesi Head BIOS[employer]ENCE / Implanted: Qty: 1 on 08/05/2015 by ve [employer]MER [employer] [id number] Mark Gonsalez MD MEDICAL Cath,Peritoneal Small Open End Neuro Right: [employer]G 2018 [id number] / Barium 90cm - [id number] Abdomen NAVIGATION / Implanted: Qty: 1 on 08/05/2015 by [employer]OLOG[employer] [id number] Mark Gonsalez MD Cath,Ventricular Standard/Small Neuro Right: [employer]G 2019 [id number] / 23cm - [id number] Head NAVIGATION / Implanted: Qty: 1 on 08/05/2015 by [employer] [id number] Mark Gonsalez MD Valve,Csf Flow Control [place] Med Neuro Right: [employer]G [id number] / Press 16mm - [id number] Head NAVIGATION / Implanted: Qty: 1 on 08/05/2015 by [employer] [id number] Mark Gonsalez MD Results Not on fileafter 12/06/2016
--- OUTSIDE RECORDS SUMMARY | 2017-12-07 16:40 | XMS REPORT ---
Author Author [facility] Address Unknown Phone Unavailable Care Team Providers Care Fire Control Officer Name Role Phone JOVITA WALKER Unavailable Unavailable Problems This patient has no known problems. Allergies, Adverse Reactions, Alerts This patient has no known allergies or adverse reactions. Medications This patient has no known medications. Results Test Description Test Time Test Comments Text Results Atomic Results Result Comments CT ABDOMEN/PELVIS W [place] [address] Patient Name: MARTINEZ BAEZA MR #: [id number] : 1930 Age/Sex: 86/F Req #: [id number] Adm Physician: JOVITA WALKER MD Ordered by: JOVITA WALKER MD Report #: [id number] Location: MED/SURG Room/Bed: [facility] Procedure: [id number] CT/CT ABDOMEN/PELVIS W Exam Date : 09/14/17 Exam Time: 0940 REPORT STATUS: Signed PROCEDURE: CT ABDOMEN AND PELVIS WITH CONTRAST TECHNIQUE: The abdomen and pelvis were scanned utilizing a multidetector helical scanner from the diaphragm to the lesser trochanter after the IV administration of 100 cc of Isovue 370 and the oral administration of Gastrografin intermixed with water. Coronal and sagittal multiplanar reformations were obtained. DLP: 505.73 mGy-cm COMPARISON: None. INDICATIONS: GASTROINTESTINAL BLEED FINDINGS: LOWER THORAX: Calcified breast implants are partially visualized. Bibasilar atelectasis. HEPATOBILIARY: Enhancing mass within the right lobe of liver; segment 8 near the dome of the diaphragm likely represents a cavernous or flash fill hemangioma but this is nonspecific. Speckled areas of granulomatous calcification within the liver. No biliary ductal dilatation. SPLEEN: No splenomegaly. PANCREAS: No focal masses or ductal dilatation. ADRENALS: No adrenal nodules. KIDNEYS/URETERS: No hydronephrosis, stones, or solid mass lesions. PELVIC ORGANS/BLADDER: Jarquin catheter within the bladder. PERITONEUM / RETROPERITONEUM: No evidence of a retroperitoneal hematoma. Partially visualized ventriculoperitoneal shunt line present. LYMPH NODES : No lymphadenopathy. VESSELS: Diffuse vascular calcification. There are 2 right renal arteries. GI TRACT: No distention or wall thickening. Sigmoid colon diverticula. Linear high density metallic substance within the rectum. BONES AND SOFT TISSUES: There are postoperative changes involving the right hip; status post IM bertin and femoral neck screw. There is air and hematoma present situated superior to the trochanter. Nondisplaced fractures of the right superior and inferior rami. Fracture line extends to the superior acetabulum on the right. Left total hip replacement. Degenerative changes of the spine. Partial compression fracture of T12 and T9. Disc space narrowing at L5-S1. IMPRESSION: 1. Status post operative reduction of a right hip fracture with intramedullary bertin and thermal neck screw. 2. Postoperative changes in the soft tissues lateral and superior to the hip fracture with air and hematoma present. 3. Nonspecific enhancing mass in the right lobe of the liver. 4. No evidence of a retroperitoneal hematoma. Aaron Rollins D.O. Dictated by: Aaron Rollins D.O. on 09/14/2017 at 10:49 Electronically approved by: Aaron Rollins D.O. on 09/14/2017 at 10:49 Dictated By: AARON ROLLINS DO 48 Transcribed By: ROSS on 09/14/17 104 COPY TO: JOVITA WALKER MD HIP RIGHT 2-3 VW (+/- PELVIS) [place] [address] Patient Name: MARTINEZ BAEZA MR #: [id number] : 1930 Age/Sex: 86/F Req #: [id number] Adm Physician: JOVITA WALKER MD Ordered by: ARLENE MELGAR MD Report #: [id number] Location: MED/SURG2 Room/Bed: [facility] Procedure: [id number] DX/HIP RIGHT 2-3 VW (+/- PELVIS ) Exam Date: Exam Time: REPORT STATUS: Signed PROCEDURE: HIP RIGHT 2-3 VW (+/- PELVIS) COMPARISON: None. INDICATIONS: POST RIGHT HIP GAMMA NAIL FINDINGS: See conclusion CONCLUSION: 1. Status post right hip Gamma nail placement. Orthopedic hardware is intact. Metallic deonte and soft tissue gas consistent with postoperative changes. 2. The patient is status post left total hip replacement. 3. Extensive vascular calcifications. 4. Generalized osteopenia. Degenerative changes in the right hip joint. Kristopher Mitchell M.D. Dictated by: Kristopher Mitchell M.D. on 09/12/2017 at 16:05 Electronically approved by: Kristopher Mitchell M.D. on 2017 at 16:05 Dictated By: KRISTOPHER MITCHELL MD 160 Transcribed By: ROSS on 160 COPY TO: ARLENE MELGAR MD [facility] (PORTABLE) [place] [address] Patient Name: MARTINEZ BAEZA MR #: [id number] : 1930 Age/Sex: 86/F Req #: [id number] Adm Physician: Ordered by: CADENCE GAY MD Report #: [id number] Location: ER Room/Bed: ___ Procedure: [id number] DX/CHEST SINGLE (PORTABLE) Exam Date: 09/06/17 Exam Time: 2144 REPORT STATUS: Signed EXAMINATION: CHEST SINGLE (PORTABLE) INDICATION: Shortness of breath COMPARISON: 07/20/2017 FINDINGS: TUBES and LINES: Right-sided RENEWALS REPRESENTATIVE shunt catheter visualized. LUNGS: Lungs are not well inflated. There are bibasilar atelectasis. There is no evidence of pneumonia or pulmonary edema. PLEURA: No pleural effusion or pneumothorax. HEART AND MEDIASTINUM: Cardiac size is mildly enlarged. There are atherosclerotic calcifications within the aorta. BONES AND SOFT TISSUES: No acute osseous lesion. Breast implants are visualized. Soft tissues are unremarkable. UPPER ABDOMEN: No free air under the diaphragm. IMPRESSION: No acute thoracic abnormality. Signed by: Dr. Tree Jin M.D. on 09/06/2017 10:30 PM Dictated By: TREE DONOVAN MD 29 Transcribed By: KATHERINE on 09/06/172229 COPY TO: CADENCE GAY MD CT BRAIN WO [place] [address] Patient Name: MARTINEZ BAEZA MR #: [id number] : 1930 Age/Sex: 86/F Req # : [id number] Adm Physician: Ordered by: DOLORES GARCIA NP Report #: [id number] Location: ER Room/Bed: Procedure: [id number] CT/CT BRAIN WO Exam Date: 09/06/17 Exam Time: 1553 REPORT STATUS: Signed Exam: Head CT without contrast History: Fall Comparison studies: Head CT 01/21/2017 Technique: Axial images were obtained from the skull base to the vertex. Coronal and sagittal images reconstructed from the axial data. Intravenous contrast: None Findings: Scalp/bones: Unchanged right frontal tanvir hole. Brain sulci: Appropriate for age. Ventricles: There is a stable right frontal approach ventriculostomy catheter which courses through the frontal horn of the right lateral ventricle through the septum pellucidum with tip terminating near the left foramen of Monro. There is stable appearance of the ventricular system. 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 Parenchyma: There is stable cortical encephalomalacia in the right frontal lobe along the catheter tract. Scatter hypodensities in the periventricular and deep cerebral white matter are small vessel ischemic changes. There is stable hypodensity in the left subinsular region which may reflect a chronic lacunar infarct versus prominent perivascular space. Sellar/suprasellar region: Stable hyperdense and enlargement of the hypophysis measuring up to 13 mm. Craniocervical junction : Patent foramen magnum. No Chiari one malformation. Incidental findings: Carotid siphons atherosclerotic calcification. IMPRESSION: 1. No acute intracranial abnormalities. 2. 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 3. Stable right frontal ventriculostomy catheter with no interval change in size of the ventricular system. 4. Mild supratentorial white matter small vessel ischemic changes and mild generalized cerebral volume loss. 5. Stable prominent hyperdense pituitary gland. Preliminary report was provided by neuroradiology fellow, Dr.Thach Shalini MD on 09/06/2017 5:30 PM. I have reviewed the images and agree with the findings in the preliminary report. Signed by: Dr. Crista Martin M.D. on 09/06/2017 9:02 PM Dictated By: CRISTA MARTIN MD 01 Transcribed By: KATHERINE on 09/06/172101 COPY TO: DOLORES GARCIA NP MRI HIP RIGHT WO [place] [address] Patient Name: MARTINEZ BAEZA MR #: [id number] : 1930 Age/Sex: 86/F Req # : [id number] Adm Physician: Ordered by: DOLORES GARCIA NP Report #: [id number] Location: ER Room/Bed: Procedure: [id number] MRI/MRI HIP RIGHT WO Exam Date: 09/06/17 Exam Time: 1615 REPORT STATUS: Signed TECHNIQUE: Magnetic resonance imaging of the pelvis and right hip was performed WITHOUT injected contrast using standard departmental protocols. HISTORY: Pain, fall COMPARISON : None. FINDINGS: Bone and bone marrow: Linear marrow edema within the intertrochanteric region. Bilateral sacral fractures. Nondisplaced right superior and inferior pubic ramus fractures. Nondisplaced left pubis fracture. Hip joint: Mild degenerative arthrosis of the right hip joint with labral fraying and partial-thickness cartilage loss and effusion. Left total hip arthroplasty with extensive hardware artifact. Soft tissues: The visualized tendons appear intact. IMPRESSION: Nondisplaced incomplete intertrochanteric fracture of the right femur. Insufficiency fractures: Nondisplaced bilateral sacral fractures. Nondisplaced right superior and inferior pubic ramus fracture and left left pubis fracture. Signed by: Dr. Nicole Cancino M.D. on 5:58 PM Dictated By: NICOLE CANCINO MD 57 Transcribed By: KATHERINE on 09/06/171757 COPY TO: DOLORES GARCIA NP MRI PELVIS WO [place] [address] Patient Name: MARTINEZ BAEZA MR #: [id number] : 1930 Age/Sex: 86/F Req # : [id number] Adm Physician: Ordered by: DOLORES GARCIA NP Report #: [id number] Location: ER Room/Bed: Procedure: [id number] MRI/MRI PELVIS WO Exam Date: 09/06/17 Exam Time : 1615 REPORT STATUS: Signed TECHNIQUE: Magnetic resonance imaging of the pelvis and right hip was performed WITHOUT injected contrast using standard departmental protocols. HISTORY: Pain, fall COMPARISON: None. FINDINGS: Bone and bone marrow: Linear marrow edema within the intertrochanteric region. Bilateral sacral fractures. Nondisplaced right superior and inferior pubic ramus fractures. Nondisplaced left pubis fracture. Hip joint: Mild degenerative arthrosis of the right hip joint with labral fraying and partial-thickness cartilage loss and effusion. Left total hip arthroplasty with extensive hardware artifact. Soft tissues: The visualized tendons appear intact. IMPRESSION: Nondisplaced incomplete intertrochanteric fracture of the right femur. Insufficiency fractures: Nondisplaced bilateral sacral fractures. Nondisplaced right superior and inferior pubic ramus fracture and left left pubis fracture. Signed by: Dr. Nicole Cancino M.D. on 5:58 PM Dictated By: NICOLE CANCINO MD 57 Transcribed By: KATHERINE on 09/06/171757 COPY TO: DOLORES GARCIA NP CHEST SINGLE (PORTABLE) [place] [address] Patient Name: MARTINEZ BAEZA MR #: [id number] : 1930 Age/Sex: 86/F Req #: [id number] Adm Physician: JOVITA WALKER MD Ordered by: SHREYA WALKER MD Report #: [id number] Location: MED/SURG2 Room/Bed: [facility] Procedure: [id number] DX/CHEST SINGLE (PORTABLE) Exam Date: 07/20/17 Exam Time: 05 REPORT STATUS: Signed CHEST SINGLE (PORTABLE), 07/20/2017 6:00 AM Technique: CHEST SINGLE (PORTABLE) Comparison: 07/18/2017 Clinical history: Cough Findings: See Impression Impression: 1. Lines/Tubes: Shunt catheter overlies the right hemithorax. 2. Stable cardiomediastinal silhouette with calcified tortuous aorta. 3. Persistent small effusions with improved bibasilar opacities. Signed by: Dr Tiny Kwon MD on 07/20/2017 6:13 AM Dictated By: TINY KWON MD 2 Transcribed By: KATHERINE on 07/20/17612 COPY TO: SHREYA WALKER MD CHEST SINGLE (PORTABLE) [place] [address] Patient Name: MARTINEZ BAEZA MR #: [id number] : 1930 Age/Sex: 86/F Req #: [id number] Adm Physician: JOVITA WALKER MD Ordered by: JOVITA WALKER MD Report #: [id number] Location: MED/SURG2 Room/Bed: [facility] Procedure: [id number] DX/CHEST SINGLE (PORTABLE) Exam Date: 07/18/17 Exam Time: 0540 REPORT STATUS: Signed CHEST SINGLE (PORTABLE), 07/18/2017 5:00 AM Technique: CHEST SINGLE (PORTABLE) Comparison: 07/14/2017 Clinical history: Pneumonia Findings: See Impression Impression: 1. Lines/Tubes: Shunt catheter overlies the right hemithorax. 2. Stable cardiomediastinal silhouette with calcified tortuous aorta. 3. Stable small pleural effusions with bibasilar atelectasis/infection. Signed by: Dr Tiny Kwon MD on 07/18/2017 6:17 AM Dictated By: TINY KWON MD 6 Transcribed By: KATHERINE on 07/18/17616 COPY TO: JOVITA WALKER MD CHEST SINGLE (PORTABLE) [place] [address] Patient Name: MARTINEZ BAEZA MR #: [id number] : 1930 Age/Sex: 86/F Req #: [id number] Adm Physician: JOVITA WALKER MD Ordered by: JOVITA WALKER MD Report #: [id number] Location: MED/SURG2 Room/Bed: [facility] Procedure: [id number] DX/CHEST SINGLE (PORTABLE) Exam Date: 07/14/17 Exam Time: 0515 REPORT STATUS: Signed EXAMINATION: CHEST SINGLE (PORTABLE) INDICATION: Pneumonia COMPARISON: 07/09/2017 FINDINGS: TUBES and LINES: Right IJ central line catheter is stable with tip at the SVC LUNGS: Lungs are not well inflated. There are bibasilar atelectasis. There is persistent mild perihilar interstitial opacities, consistent with interstitial edema. PLEURA: Small bilateral pleural effusion HEART AND MEDIASTINUM: Cardiac size is mildly enlarged. There are atherosclerotic calcifications within the aorta. BONES AND SOFT TISSUES: No acute osseous lesion. Left breast soft tissue implant versus radiopaque foreign body overlying the left chest UPPER ABDOMEN: No free air under the diaphragm. IMPRESSION: Stable interstitial edema and small bilateral pleural effusions Signed by: Dr. Tree Jin M.D. on 07/14/2017 6:37 AM Dictated By: TREE DONOVAN MD 6 Transcribed By: KATHERINE on 07/14/17636 COPY TO: JOVITA WALKER MD CHEST SINGLE (PORTABLE) [place] [address] Patient Name: MARTINEZ BAEZA MR #: [id number] : 1930 Age/Sex: 86/F Req #: [id number] Adm Physician: Ordered by: TIFF DOUGHERTY MD Report #: [id number] Location: ER Room/Bed: Procedure: [id number] DX/CHEST SINGLE (PORTABLE) Exam Date: 07/09/17 Exam Time: 1420 REPORT STATUS: Signed PROCEDURE: A single AP view of the chest. COMPARISON: Patients [facility], DX, CHEST SINGLE (PORTABLE), 01/21/2017, 18:39. INDICATIONS: SHORTNESS OF BREATH, WEAKNESS, PNEUMONIA FINDINGS: Lines/tubes: Right IJ catheter with distal tip projected over the cavoatrial junction. Lungs and Pleura: There is no pneumothorax. There is a small left pleural effusion associated with left basilar subsegmental atelectasis versus consolidation. Trace right pleural effusion. Heart and mediastinum: The cardiac silhouette is mildly prominent. Tortuous thoracic aorta. Bones : No acute bony abnormality. IMPRESSION: 1. Small left and trace right pleural effusions. Left basilar atelectasis versus consolidation. Nancy Garcia M.D. Dictated by: Nancy Garcia M.D. on 07/09/2017 at 15:13 Electronically approved by: Nancy Garcia M.D. on 07/09/2017 at 15:13 Dictated By: DIEGO GARCIA MD, MD 1513 Transcribed By: ROSS on 07/09/17 1513 COPY TO: TIFF DOUGHERTY MD
--- OUTSIDE RECORDS SUMMARY | 2017-12-07 16:55 | XMS REPORT | Clinical Summary ---
Author Author [facility] Address Unknown Phone Unavailable Care Team Providers Care Inker Machine Name Role Phone PCP Unavailable Allergies Active [...] Not on file Implants Implanted Type Area Ortho/Prosthetic Aide Device Expiration Model / Identifier Date Serial / Lot Sealant,Floseal Hemostatic Matrix Cement/Eitan Right: DONALD 2016 [id number] / 10ml - [id number] ler/Adhesi Head BIOSCIENCE / Implanted: Qty: 1 on 08/05/2015 by ve FORMER FUSION [id number] Mark Gonsalez MD MEDICAL Cath,Peritoneal Small Open End Neuro Right: [employer] SURG 2018 [id number] / Barium 90cm - [id number] Abdomen NAVIGATION / Implanted: Qty: 1 on 08/05/2015 by TECHNOLOGIES [id number] Mark Gonsalez MD Cath,Ventricular Standard/Small Neuro Right: [employer] SURG 2019 02506 / 23cm - [id number] Head NAVIGATION / Implanted: Qty: 1 on 08/05/2015 by TECHNOLOG[employer] [id number] Mark Gonsalez MD Valve,Csf Flow Control [place] Med Neuro Right: [employer] SURG 31236 / Press 16mm - [id number] Head NAVIGATION / Implanted: Qty: 1 on 08/05/2015 by TECHNOLOG[employer] [id number] Mark Gonsalez MD Results Not on fileafter 12/06/2016
[2017-12-07] MEDS ORDERED: SODIUM CHLORIDE 0.9% 1000ML 1,000 ML IV STA (16:57)
--- NOTE | 2017-12-07 17:42 | Diagnostic Imaging Report ---
History:Altered mental status Comparison studies: Seminal head CT dated back to 12/05/2016, most recent on 09/06/2017. Technique: Axial images were obtained from the skull base to the vertex. Coronal and sagittal images reconstructed from the axial data. Intravenous contrast: None Findings: Impression No acute abnormalities. No changes when compared to the previous head CTs which date back to 12/05/2016 Persistent findings: 1. A right frontal shunt catheter remains in place with its tip in the left frontal horn. 2. An approximately 2.6 x 2.6 x 2.5 cm (SI-AP-Trans) mass which probably originates in the hypothalamus, continues to fill the third ventricle and, through the foramina of Monro, projects into the frontal horns of the lateral ventricles. 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 Chronic findings: Moderate generalized volume loss. Radiata changes in the right frontal white matter which follow tract of the catheter. Coarse atherosclerotic calcifications in the carotid siphons and left vertebral artery. Signed by: Dr. Freddie Segundo M.D. on 12/07/2017 5:39 PM
[2017-12-07 17:53] LABS: BASOPHILS # (AUTO) 0.1 (0.0-0.1); BASOPHILS % 0.4 % (0.0-1.0); EOSINOPHILS % 0.2 % (0.0-6.0); HEMATOCRIT 41.5 % (34.2-44.1); HEMOGLOBIN 13.9 g/dL (12.0-16.0); LYMPHOCYTES # (AUTO) 1.2 (1.0-3.2); LYMPHOCYTES % 7.9 % (18.0-39.1); MEAN CORPUSCULAR HEMOGLOBIN 29.7 pg (28-32); MEAN CORPUSCULAR HGB CONC 33.5 g/dL (31-35); MEAN CORPUSCULAR VOLUME 88.7 fL (81-99); MONOCYTES % 6.3 % (4.4-11.3); NEUTROPHILS # (AUTO) 13.2 (2.1-6.9); NEUTROPHILS % 84.4 % (38.7-80.0); PLATELET COUNT 358 x10e3/uL (140-360); RED BLOOD COUNT 4.68 x10e6/uL (3.6-5.1); RED CELL DISTRIBUTION WIDTH 13.9 % (11.7-14.4)
[2017-12-07 17:57] LABS: INR 1.07; PROTHROMBIN TIME 13.1 seconds (11.9-14.5)
[2017-12-07 17:58] LABS: PARTIAL THROMBOPLASTIN TIME 31.4 seconds (23.8-35.5)
[2017-12-07 18:07] LABS: ALANINE AMINOTRANSFERASE 12 IU/L (0-55); ALBUMIN 3.1 g/dL (3.5-5.0); ALBUMIN/GLOBULIN RATIO 0.8 (0.8-2.0); ALKALINE PHOSPHATASE 92 IU/L (40-150); ANION GAP 14.6 mmol/L (8-16); BLOOD UREA NITROGEN 20 mg/dL (7-26); BUN/CREATININE RATIO 26 (6-25); CALCIUM 10.1 mg/dL (8.4-10.2); CARBON DIOXIDE 29 mmol/L (22-29); CHLORIDE 90 mmol/L (98-107); CREATINE KINASE 72 IU/L (29-168); CREATININE, SERUM 0.76 mg/dL (0.57-1.11); EST GLOMERULAR FILTRATION RATE > 60 ML/MIN (60-); GLUCOSE 144 mg/dL (74-118); POTASSIUM 3.6 mmol/L (3.5-5.1); SODIUM 130 mmol/L (136-145)
--- NOTE | 2017-12-07 18:21 | Diagnostic Imaging Report ---
CORRECTION Corrected on: 12/07/2017; Dictated by: Kristopher Young M.D. on 12/07/2017 at 18:23 Electronically approved by: Kristopher Young M.D. on 12/07/2017 at 18:23 PROCEDURE:SHUNT SERIES INDICATION:AMS COMPARISON:None. FINDINGS: PAINTER SUPERVISOR shunt catheter courses through the soft tissues of the right neck, right chest and projects over the mid abdomen, with distal tip projecting in the left pelvis. Catheter is intact, without fractures or areas of discontinuity. No tissue densities associated to the tip to suggest focal collection of CSF. Clear lungs. Nonobstructive bowel gas pattern. Generalized osteopenia. Left hip prosthesis. Right hip ORIF CONCLUSION: 1. Intact PAINTER SUPERVISOR shunt. Please see CT head performed same date for description of catheter location in the skull Kristopher Young M.D. Dictated by: Kristopher Young M.D. on 12/07/2017 at 18:22 Electronically approved by: Kristopher Young M.D. on 12/07/2017 at 18:22
--- OUTSIDE RECORDS SUMMARY | 2017-12-07 19:02 | XMS REPORT | Clinical Summary ---
Author Author [facility] Address Unknown Phone Unavailable Care Team Providers Care Cellular Equipment Installer Name Role Phone PCP Unavailable Allergies Active [...] Not on file Implants Implanted Type Area Quality Compliance Coordinator Device Expiration Model / Identifier Date Serial / Lot Sealant,Floseal Hemostatic Matrix Cement/Eitan Right: DONALD 2016 [id number] / 10ml - [id number] ler/Adhesi Head BIOSCIENCE / Implanted: Qty: 1 on 08/05/2015 by ve FORMER FUSION [id number] Mark Gonsalez MD MEDICAL Cath,Peritoneal Small Open End Neuro Right: [employer] SURG 2018 79070 / Barium 90cm - [id number] Abdomen NAVIGATION / Implanted: Qty: 1 on 08/05/2015 by TECHNOLOG[employer] [id number] Mark Gonsalez MD Cath,Ventricular Standard/Small Neuro Right: [employer] SURG 2019 67625 / 23cm - [id number] Head NAVIGATION / Implanted: Qty: 1 on 08/05/2015 by TECHNOLOG[employer] [id number] Mark Gonsalez MD Valve,Csf Flow Control [place] Med Neuro Right: [employer] SURG 57260 / Press 16mm - [id number] Head NAVIGATION / Implanted: Qty: 1 on 08/05/2015 by TECHNOLOGIES [id number] Mark Gonsalez MD Results Not on fileafter 12/06/2016
[2017-12-07 21:59] VITALS: BP 138/77
[2017-12-07 22:18] VITALS: BP 138/77
[2017-12-07] MEDS: SODIUM CHLORIDE 0.9% 1000ML 1,000 ML IV SCH (23:30)
[2017-12-08] VITALS (8 sets, daily range): BP systolic 87–147; BP diastolic 41–77
[2017-12-08] MEDS: SODIUM CHLORIDE 0.9% 1000ML 1,000 ML IV SCH ×2 (01:05→09:20)
[2017-12-08] MEDS: VANCOMYCIN 250MG/5ML ORAL SOLN PO SCH ×3 (06:00→12:00)
[2017-12-08] MEDS ORDERED: DIPHENOXYLATE/ATROPINE TAB PO PRN (06:45)
[2017-12-08] MEDS ORDERED: DIPHENOXYLATE/ATROPINE TAB PO ONE (07:00)
[2017-12-08 07:22] LABS: BASOPHILS # (AUTO) 0.1 (0.0-0.1); BASOPHILS % 0.6 % (0.0-1.0); EOSINOPHILS # (AUTO) 0.2 (0.0-0.4); EOSINOPHILS % 2.2 % (0.0-6.0); HEMATOCRIT 30.4 % (34.2-44.1); HEMOGLOBIN 9.9 g/dL (12.0-16.0); LYMPHOCYTES # (AUTO) 2.4 (1.0-3.2); LYMPHOCYTES % 21.7 % (18.0-39.1); MEAN CORPUSCULAR HEMOGLOBIN 29.5 pg (28-32); MEAN CORPUSCULAR HGB CONC 32.6 g/dL (31-35); MEAN CORPUSCULAR VOLUME 90.5 fL (81-99); MONOCYTES # (AUTO) 1.2 (0.2-0.8); MONOCYTES % 10.9 % (4.4-11.3); NEUTROPHILS # (AUTO) 6.8 (2.1-6.9); NEUTROPHILS % 63.1 % (38.7-80.0); PLATELET COUNT 249 x10e3/uL (140-360); RED BLOOD COUNT 3.36 x10e6/uL (3.6-5.1)
[2017-12-08 07:54] LABS: ANION GAP 8.2 mmol/L (8-16); BLOOD UREA NITROGEN 16 mg/dL (7-26); BUN/CREATININE RATIO 27 (6-25); CALCIUM 8.5 mg/dL (8.4-10.2); CARBON DIOXIDE 28 mmol/L (22-29); CHLORIDE 98 mmol/L (98-107); EST GLOMERULAR FILTRATION RATE > 60 ML/MIN (60-); GLUCOSE 86 mg/dL (74-118); POTASSIUM 3.2 mmol/L (3.5-5.1); SODIUM 131 mmol/L (136-145)
[2017-12-08 08:40] LABS: CLARITY,URINE CLOUDY (CLEAR); COLOR,URINE YELLOW (YELLOW); KETONES,URINE NEGATIVE (NEGATIVE); LEUKOCYTE ESTERASE ,URINE NEGATIVE (NEGATIVE); NITRITE,URINE POSITIVE (NEGATIVE); PROTEIN,URINE DIPSTICK TRACE (NEGATIVE); URINE UROBILINOGEN 0.2 mg/dL (0.2 - 1)
[2017-12-08 08:41] LABS: BILIRUBIN,URINE NEGATIVE (NEGATIVE)
[2017-12-08 09:00] LABS: BACTERIA,URINE MANY /HPF; EPITHELIAL CELLS,URINE RARE /LPF; RBC,URINE 0-5 /HPF (0-5)
[2017-12-08] MEDS ORDERED: HOME MEDICATION--PATIENTS OWN PO SCH (09:00)
[2017-12-08] MEDS ORDERED: ZYRTEC10 M3 PO (13:53)
[2017-12-08] MEDS: CEFTRIAXONE SOD 1 GM VIAL IV SCH (14:14)
[2017-12-08] MEDS ORDERED: NYSTATIN 15 GM POWDER UD BTL TOP PRN (14:15)
[2017-12-08] MEDS ORDERED: LORATADINE 10 MG TAB PO SCH (15:00)
[2017-12-08] MEDS: LEVETIRACETAM 500 MG TAB PO SCH (15:10)
--- NOTE | 2017-12-08 15:15 | History and Physical ---
CHIEF COMPLAINT: Diarrhea. HISTORY OF PRESENT ILLNESS: This is an 87-year-old white woman who presents to [facility] Emergency Room with a 2-day history of profuse, watery diarrhea. The patient apparently recently finished a 2-week course of oral Macrobid for a urinary tract infection. This woman unfortunately has a history of recurrent Clostridium difficile colitis. In the emergency room, the patient was found to have BUN and creatinine of 20 and 0.76 respectively. This morning, it has improved to 16 and 0.6 respectively. The patient's white blood cell count in the emergency room was 15,600. Today, it is 10,800. In the emergency room, the patient had a urinalysis done, which revealed cloudy, yellow urine with 3+ blood, positive nitrites, 11-20 white blood cells per high-power field. The urinalysis also revealed many bacteria. The patient underwent CT of the head in the emergency room which revealed moderate generalized volume loss but no acute intracranial abnormality appreciated. The patient also underwent a shunt series that revealed an intact ventriculoperitoneal shunt. The patient was admitted for further evaluation and treatment. The nursing staff states the watery stool does not have a strong, pungent odor consistent with Clostridium difficile colitis. REVIEW OF SYSTEMS GENERAL: The patient has lost 30 pounds over the last 6 months. No fever or chills. The patient has been more confused over the last week. HEENT: No headache. No vision changes. CARDIOVASCULAR: No back pain, shortness of breath or chest pain. GI: Profuse, watery diarrhea for the last 2 days. : The patient was recently diagnosed with a urinary tract infection and was treated with 2 weeks of oral Macrobid. NEUROMUSCULAR: The patient is bedbound. No new neurologic deficits, but the patient is less responsive than usual and more confused according to family members. ALLERGIES 1. SULFA ANTIBIOTICS. 2. CLINDAMYCIN. 3. MEROPENEM. 4. METRONIDAZOLE. 5. VANCOMYCIN. FAMILY HISTORY: Noncontributory. PAST MEDICAL HISTORY 1. History of recurrent Clostridium difficile colitis. 2. Moderate dementia. 3. Physical debility. 4. Diastolic heart failure. 5. Benign brain tumor requiring ventriculoperitoneal shunt. 6. Hypothyroidism. 7. Seizure disorder. SURGICAL HISTORY 1. Left hip hemiarthroplasty. 2. Right hip Gamma nail placement. 3. Ventriculoperitoneal shunt placed because of benign brain tumor. SOCIAL HISTORY: This woman is . She lives with her adult daughter. No history of tobacco or alcohol use. HOME MEDICATIONS 1. Mucinex q.8 h. p.r.n. cough. 2. Keppra 500 mg b.i.d. 3. Levothyroxine 50 mcg daily. 4. Nystatin powder applied to affected area as needed. 5. Polyethylene glycol 17 g daily. PHYSICAL EXAMINATION GENERAL: She is somnolent, but arousable, in no acute distress. She is not oriented to self, time or place. VITAL SIGNS: Height is 5 feet 2 inches, weight 104 pounds, calculated body mass index 19. Blood pressure 91/50, pulse 60, respiratory rate 18, oxygen saturation 100% on 2 L oxygen via nasal cannula. Temperature 97.84. INTEGUMENT: Skin is warm and dry. No pallor, jaundice or diaphoresis. HEENT: Anicteric sclerae with moist mucous membranes. NECK: Supple. CARDIOVASCULAR: Regular rate and rhythm with an S3 gallop. LUNGS: Faint crackles bilaterally. ABDOMEN: Benign. EXTREMITIES: No edema or deformity. NEUROLOGIC: Intact. DIAGNOSES 1. Diarrhea. 2. History of Clostridium difficile colitis. 3. Sepsis secondary to urinary tract infection. 4. Moderate dementia. 5. Underweight (calculated body mass index 19). 6. Chronic diastolic congestive heart failure. PLAN 1. Stop intravenous fluids since the patient has heart failure. 2. Send stool for Clostridium difficile toxin detection. 3. Intravenous antibiotics. 4. Follow urine culture. 5. Follow electrolytes. 6. Follow white blood cell count. 7. Stop polyethylene glycol since the patient is having loose stools. I spent 45 minutes in the care of this patient. Job#: [id number]
[2017-12-08] MEDS: FIDAXOMICIN 200 MG TABLET PO SCH (17:11)
[2017-12-09] VITALS (7 sets, daily range): BP systolic 108–142; BP diastolic 52–72
[2017-12-09] MEDS: LEVETIRACETAM 500 MG TAB PO SCH ×3 (02:15→17:01)
[2017-12-09] MEDS: LEVOTHYROXINE SODIUM 50 MCG TAB PO SCH (05:07)
[2017-12-09 07:45] LABS: BASOPHILS # (AUTO) 0.1 (0.0-0.1); BASOPHILS % 0.6 % (0.0-1.0); EOSINOPHILS # (AUTO) 0.4 (0.0-0.4); EOSINOPHILS % 2.9 % (0.0-6.0); HEMOGLOBIN 9.8 g/dL (12.0-16.0); LYMPHOCYTES # (AUTO) 2.1 (1.0-3.2); LYMPHOCYTES % 17.6 % (18.0-39.1); MEAN CORPUSCULAR HEMOGLOBIN 30.1 pg (28-32); MEAN CORPUSCULAR HGB CONC 32.7 g/dL (31-35); MONOCYTES # (AUTO) 1.1 (0.2-0.8); MONOCYTES % 9.2 % (4.4-11.3); NEUTROPHILS # (AUTO) 8.1 (2.1-6.9); NEUTROPHILS % 68.4 % (38.7-80.0); PLATELET COUNT 246 x10e3/uL (140-360); RED BLOOD COUNT 3.26 x10e6/uL (3.6-5.1); RED CELL DISTRIBUTION WIDTH 13.8 % (11.7-14.4)
[2017-12-09 08:41] LABS: ALANINE AMINOTRANSFERASE 10 IU/L (0-55); ALBUMIN 2.3 g/dL (3.5-5.0); ALBUMIN/GLOBULIN RATIO 0.8 (0.8-2.0); ALKALINE PHOSPHATASE 65 IU/L (40-150); ANION GAP 9.4 mmol/L (8-16); BLOOD UREA NITROGEN 11 mg/dL (7-26); BUN/CREATININE RATIO 20 (6-25); CALCIUM 8.8 mg/dL (8.4-10.2); CARBON DIOXIDE 27 mmol/L (22-29); CHLORIDE 101 mmol/L (98-107); CREATININE, SERUM 0.54 mg/dL (0.57-1.11); EST GLOMERULAR FILTRATION RATE > 60 ML/MIN (60-); GLUCOSE 79 mg/dL (74-118); POTASSIUM 3.4 mmol/L (3.5-5.1); SODIUM 134 mmol/L (136-145)
[2017-12-09] MEDS: FIDAXOMICIN 200 MG TABLET PO SCH ×2 (08:48→17:01)
[2017-12-09] MEDS ORDERED: LORATADINE 10 MG TAB PO SCH (09:00)
[2017-12-09] MEDS ORDERED: POTASSIUM CHLORIDE 10 MEQ TABCR PO ONE (11:30)
[2017-12-09] MEDS ORDERED: POTASSIUM CHLORIDE 20 MEQ TAB CR PO ONE (11:45)
[2017-12-09] MEDS: CEFTRIAXONE SOD 1 GM VIAL IV SCH (12:20)
[2017-12-10 00:02] VITALS: BP 117/56
[2017-12-10 04:37] VITALS: BP 113/59
[2017-12-10] MEDS: LEVOTHYROXINE SODIUM 50 MCG TAB PO SCH (05:32)
[2017-12-10 06:09] LABS: BASOPHILS # (AUTO) 0.1 (0.0-0.1); BASOPHILS % 0.6 % (0.0-1.0); EOSINOPHILS # (AUTO) 0.2 (0.0-0.4); EOSINOPHILS % 1.7 % (0.0-6.0); HEMATOCRIT 31.7 % (34.2-44.1); HEMOGLOBIN 10.5 g/dL (12.0-16.0); LYMPHOCYTES # (AUTO) 1.7 (1.0-3.2); LYMPHOCYTES % 15.6 % (18.0-39.1); MEAN CORPUSCULAR HEMOGLOBIN 29.7 pg (28-32); MEAN CORPUSCULAR HGB CONC 33.1 g/dL (31-35); MEAN CORPUSCULAR VOLUME 89.8 fL (81-99); MONOCYTES # (AUTO) 0.9 (0.2-0.8); MONOCYTES % 8.1 % (4.4-11.3); NEUTROPHILS # (AUTO) 7.9 (2.1-6.9); NEUTROPHILS % 73.1 % (38.7-80.0); PLATELET COUNT 271 x10e3/uL (140-360); RED BLOOD COUNT 3.53 x10e6/uL (3.6-5.1); RED CELL DISTRIBUTION WIDTH 13.9 % (11.7-14.4)
[2017-12-10 06:35] LABS: ANION GAP 12.2 mmol/L (8-16); BLOOD UREA NITROGEN 14 mg/dL (7-26); BUN/CREATININE RATIO 25 (6-25); CALCIUM 9.1 mg/dL (8.4-10.2); CARBON DIOXIDE 25 mmol/L (22-29); CHLORIDE 102 mmol/L (98-107); CREATININE, SERUM 0.57 mg/dL (0.57-1.11); EST GLOMERULAR FILTRATION RATE > 60 ML/MIN (60-); GLUCOSE 106 mg/dL (74-118); POTASSIUM 4.2 mmol/L (3.5-5.1); SODIUM 135 mmol/L (136-145)
[2017-12-10 08:00] VITALS: BP 142/60
[2017-12-10] MEDS: FIDAXOMICIN 200 MG TABLET PO SCH ×2 (09:00→17:00)
[2017-12-10] MEDS: LEVETIRACETAM 500 MG TAB PO SCH ×2 (09:00→17:00)
[2017-12-10 12:00] VITALS: BP 144/78
[2017-12-10] MEDS: CEFTRIAXONE SOD 1 GM VIAL IV SCH (13:00)
[2017-12-10 16:00] VITALS: BP 115/62
[2017-12-10 20:00] VITALS: BP_SYST 115; BP_SYST 132; BP_DIAS 62; BP_DIAS 65
[2017-12-11] VITALS (7 sets, daily range): BP systolic 105–152; BP diastolic 51–73
[2017-12-11] MEDS: LEVOTHYROXINE SODIUM 50 MCG TAB PO SCH (05:55)
[2017-12-11] MEDS: FIDAXOMICIN 200 MG TABLET PO SCH ×2 (08:33→17:10)
[2017-12-11] MEDS: LEVETIRACETAM 500 MG TAB PO SCH ×2 (08:33→17:10)
[2017-12-11] MEDS: CEFTRIAXONE SOD 1 GM VIAL IV SCH (12:58)
[2017-12-12] VITALS (9 sets, daily range): BP systolic 104–169; BP diastolic 53–83
[2017-12-12] MEDS: LEVOTHYROXINE SODIUM 50 MCG TAB PO SCH (05:40)
[2017-12-12] MEDS: FIDAXOMICIN 200 MG TABLET PO SCH ×2 (07:53→17:20)
[2017-12-12] MEDS: LEVETIRACETAM 500 MG TAB PO SCH ×2 (07:53→17:20)
--- NOTE | 2017-12-12 10:10 | Consultation ---
DATE OF CONSULTATION: December 12, 2017 UROLOGY CONSULTATION REASON FOR CONSULTATION: Recurrent urinary tract infections. HISTORY OF PRESENT ILLNESS: Sada Riggs is a debilitated 87-year-old woman who has recurrent urolithiasis. The patient was admitted to the hospital with watery diarrhea and malaise. She apparently had finished a 2-week course of Macrobid for urinary tract infection. The patient has a history of recurrent C. diff colitis. She had mental status changes. The patient denies previous urological surgery and urolithiasis. She has currently a Jarquin catheter in place. PAST MEDICAL AND SURGICAL HISTORY: 1. HERB COUNSELOR shunt. 2. Recurrent C. diff colitis. 3. Dementia. 4. Debility. 5. Diastolic heart failure. 6. Benign brain tumor requiring ventriculoperitoneal shunt. 7. Hypothyroidism. 8. Seizure disorder. 9. Status post left hip hemiarthroplasty. 10. Right hip gamma nail placement. SOCIAL HISTORY: The patient is . She denies smoking, ethanol, and drug use. The patient used to work in a laundry. FAMILY HISTORY: Noncontributory to the active urological problems. CURRENT MEDICATIONS: Please refer to the MAR. CURRENT ALLERGIES: PLEASE REFER TO THE MAR. REVIEW OF SYSTEMS: As consistent with above history of present illness and past medical history, is otherwise negative for all other systems. PHYSICAL EXAMINATION: GENERAL: Elderly debilitated-appearing woman, lying in bed, in no apparent distress. VITAL SIGNS: She is currently afebrile. Vital signs currently stable. ABDOMEN: Soft, nondistended, nontender without costovertebral angle tenderness. Kidneys are not palpable without hepatosplenomegaly. No obvious evidence of hernia. GENITOURINARY: There is a Jarquin catheter in place draining clear urine out. Internal examination is deferred. For the remaining physical examination and review of systems, please refer to the admission history and physical on the chart. LABORATORY STUDIES: Patient's urine culture reveals an E. coli that is sensitive to the current antibiotic the patient is taking. White blood cell count is 10,790, which is lower than the elevated white blood cell count previously on admission. Hemoglobin is low at 10.5, platelets are normal at 271,000. Patient's creatinine is normal at 0.57. Her sodium is slightly low, but is not as low as it was earlier during this hospitalization. Patient's potassium was low, it is now normal at 4.2. Urinalysis significant for pyuria, bacteruria. ASSESSMENT: 1. Recurrent urinary tract infections. 2. Jarquin catheter in situ. 3. Leukocytosis, improved. 4. Anemia. 5. Hyponatremia that is improving. 6. Hypokalemia that is improved. PLAN: 1. I am going to order stone protocol CT scan. 2. Recommend continued IV antibiotics. 3. Will follow up. At some point, the patient may require cystoscopy and retrogrades, however, will manage that when the patient is in her baseline medical health. Thank you very much for involving us in the care of your patient. We will be happy to follow her along with you as well as an outpatient. Job#: [id number] cc:JOE WALKER MD
--- NOTE | 2017-12-12 12:18 | Diagnostic Imaging Report ---
PROCEDURE: CT ABDOMEN AND PELVIS WITHOUT CONTRAST TECHNIQUE: The abdomen and pelvis were scanned utilizing a multidetector helical scanner from the diaphragm to the lesser trochanter. No IV contrast was administered because of stone protocol. Coronal and sagittal multiplanar reformations were obtained. DLP: 243.8 mGy-cm COMPARISON: Abdominal CT 09/14/2017 INDICATIONS: KINDEY STONES FINDINGS: ABSENCE OF INTRAVENOUS CONTRAST DECREASES SENSITIVITY FOR DETECTION OF FOCAL LESIONS AND VASCULAR PATHOLOGY. LOWER THORAX: Mild atelectasis. Coronary artery and aortic calcifications. Tortuous aorta. HEPATOBILIARY: Right hepatic calcifications. Hypodense lesions in the right hepatic lobe measuring up to 2.5 cm and 1.1 cm which correspond to enhancing lesions on the prior contrast-enhanced CT. No biliary ductal dilatation. SPLEEN: No splenomegaly. Punctate calcifications. PANCREAS: No focal masses or ductal dilatation. ADRENALS: Nodular contours bilaterally without definite discrete nodules. KIDNEYS/URETERS: Nonspecific trace perinephric stranding. No hydronephrosis or solid mass lesions. Left inferior pole 0.3 cm calcification may represent a nonobstructing gallstone or vascular calcification. Additional vascular calcifications in the renal sinus are present bilaterally. PELVIC ORGANS/BLADDER: Obscured by metallic streak artifacts from a right femoral intramedullary bertin and left hip prosthesis. Jarquin catheter in place with air in the bladder. PERITONEUM / RETROPERITONEUM: No free air. Small amount of presacral fluid. 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 LYMPH NODES: No lymphadenopathy. VESSELS: Severe diffuse vascular calcifications. GI TRACT: No distention or wall thickening. The descending and sigmoid colonic diverticula without evidence of diverticulitis. BONES AND SOFT TISSUES: Subacute left superior and inferior pubic rami fracture and sacral insufficiency fractures. Stable T9 and T12 compression deformities. Calcified breast implants. IMPRESSION: 1. Nonobstructing 0.3 cm left renal calculus versus vascular calcification. 2. Indeterminate right hepatic lesions, enhancing on CT 09/14/2017. Recommend further evaluation with CT or MRI liver mass protocol on a non-emergent/outpatient basis. 3. Stable T9 and T12 compression deformities. 4. Subacute right superior and inferior pubic rami fractures and sacral insufficiency fractures. 1. Dictated by: Jose Seymour M.D. on 12/12/2017 at 12:18 Electronically approved by: Jose Seymour M.D. on 12/12/2017 at 12:18
[2017-12-12] MEDS: CEFTRIAXONE SOD 1 GM VIAL IV SCH (15:11)
[2017-12-13] VITALS (8 sets, daily range): BP systolic 119–139; BP diastolic 59–72
[2017-12-13] MEDS: LEVOTHYROXINE SODIUM 50 MCG TAB PO SCH (05:32)
[2017-12-13] MEDS: LEVETIRACETAM 500 MG TAB PO SCH ×2 (08:30→17:08)
[2017-12-13] MEDS: FIDAXOMICIN 200 MG TABLET PO SCH ×2 (08:30→17:08)
[2017-12-13 11:35] LABS: BASOPHILS # (AUTO) 0.1 (0.0-0.1); BASOPHILS % 0.6 % (0.0-1.0); EOSINOPHILS # (AUTO) 0.5 (0.0-0.4); EOSINOPHILS % 4.7 % (0.0-6.0); HEMATOCRIT 32.1 % (34.2-44.1); HEMOGLOBIN 10.2 g/dL (12.0-16.0); LYMPHOCYTES # (AUTO) 1.8 (1.0-3.2); LYMPHOCYTES % 16.4 % (18.0-39.1); MEAN CORPUSCULAR HEMOGLOBIN 29.7 pg (28-32); MEAN CORPUSCULAR HGB CONC 31.8 g/dL (31-35); MEAN CORPUSCULAR VOLUME 93.6 fL (81-99); MONOCYTES % 8.9 % (4.4-11.3); NEUTROPHILS # (AUTO) 7.3 (2.1-6.9); NEUTROPHILS % 68.3 % (38.7-80.0); PLATELET COUNT 242 x10e3/uL (140-360); RED BLOOD COUNT 3.43 x10e6/uL (3.6-5.1); RED CELL DISTRIBUTION WIDTH 14.2 % (11.7-14.4)
[2017-12-13 11:53] LABS: ANION GAP 10.3 mmol/L (8-16); BLOOD UREA NITROGEN 14 mg/dL (7-26); BUN/CREATININE RATIO 23 (6-25); CARBON DIOXIDE 32 mmol/L (22-29); CHLORIDE 102 mmol/L (98-107); EST GLOMERULAR FILTRATION RATE > 60 ML/MIN (60-); GLUCOSE 100 mg/dL (74-118); POTASSIUM 4.3 mmol/L (3.5-5.1); SODIUM 140 mmol/L (136-145)
[2017-12-13] MEDS: CEFTRIAXONE SOD 1 GM VIAL IV SCH (12:36)
[2017-12-14 00:16] VITALS: BP 134/72
[2017-12-14] MEDS: LEVOTHYROXINE SODIUM 50 MCG TAB PO SCH (05:28)
[2017-12-14 05:55] VITALS: BP 159/93
[2017-12-14 08:00] VITALS: BP 135/68
[2017-12-14] MEDS: LEVETIRACETAM 500 MG TAB PO SCH (08:28)
[2017-12-14] MEDS: FIDAXOMICIN 200 MG TABLET PO SCH (08:28)
[2017-12-14 09:29] VITALS: BP 135/74
[2017-12-14 10:25] VITALS: BP 159/93
[2017-12-14 12:00] VITALS: BP 132/65
[2017-12-14] MEDS: CEFTRIAXONE SOD 1 GM VIAL IV SCH (13:07)
[2017-12-14] MEDS ORDERED: KEFLEX500 MG (15:15)
== END 2017-12-14 16:04 | disposition home or self-care (01) | DRG 871 ==
LOC: ER 16:52 → ERHOLD 19:00 → IMCU 19:57 → OBSVTOIN 12-09 11:26 → MED/SURG2 12-09 13:54
DX: A41.9 Sepsis, unspecified organism (principal); G93.41 Metabolic encephalopathy; F03.90 Unspecified dementia, unspecified severity, without behavioral disturbance, psychotic disturbance, mood disturbance, and anxiety; E87.1 Hypo-osmolality and hyponatremia; I11.0 Hypertensive heart disease with heart failure; I50.32 Chronic diastolic (congestive) heart failure; N39.0 Urinary tract infection, site not specified; Z68.1 Body mass index [BMI] 19.9 or less, adult; R65.20 Severe sepsis without septic shock; E03.9 Hypothyroidism, unspecified; R53.81 Other malaise; Z98.2 Presence of cerebrospinal fluid drainage device; B96.20 Unspecified Escherichia coli [E. coli] as the cause of diseases classified elsewhere; Z87.440 Personal history of urinary (tract) infections; D64.9 Anemia, unspecified; E87.6 Hypokalemia; Z88.2 Allergy status to sulfonamides; R63.6 Underweight; G40.909 Epilepsy, unspecified, not intractable, without status epilepticus; E86.0 Dehydration
CPT/HCPCS: 36415; 70450; 74176; 75809; 80048; 80053; 81001; 82550; 82553; 82948; 83605; 83880; 84484; 85025; 85610; 85730; 87086; 87186; 87493; 93005; 97139; 99284; G0378; J0696; J7030

== ENCOUNTER 2018-04-18 16:20 | Inpatient (IN) | payer MEDICARE ==
[~2018-04-18] VITALS: Ht 157.5 cm; Wt 46.7 kg
[~2018-04-18 16:20] MED LIST changes: +KEFLEX500 MG; +ZYRTEC10 M3 PO
--- NOTE | 2018-04-18 18:48 | Diagnostic Imaging Report ---
Examination: Single AP view of the chest. COMPARISON: Single chest AP chest 09/06/2017 INDICATION: Shortness of breath IMPRESSION: Exam limited due to patient rotation. 1. Lines and Tubes: None 2. Lungs are hypoinflated. Mild right basilar atelectatic changes. No definite consolidation. Stable 3 mm calcified granuloma in the left upper lobe. 3. Cardiac silhouette is stable. Pulmonary vasculature is normal. Uncoiled tortuous thoracic aorta. 4. No acute bony abnormalities. Signed by: Dr. Kristopher Young M.D. on 04/18/2018 6:45 PM
[2018-04-18 19:19] LABS: BASOPHILS # (AUTO) 0.1 (0.0-0.1); BASOPHILS % 0.5 % (0.0-1.0); EOSINOPHILS # (AUTO) 0.3 (0.0-0.4); EOSINOPHILS % 1.9 % (0.0-6.0); HEMATOCRIT 35.5 % (34.2-44.1); HEMOGLOBIN 11.9 g/dL (12.0-16.0); LYMPHOCYTES # (AUTO) 1.9 (1.0-3.2); LYMPHOCYTES % 13.1 % (18.0-39.1); MEAN CORPUSCULAR HEMOGLOBIN 29.7 pg (28-32); MEAN CORPUSCULAR HGB CONC 33.5 g/dL (31-35); MEAN CORPUSCULAR VOLUME 88.5 fL (81-99); MONOCYTES # (AUTO) 1.1 (0.2-0.8); MONOCYTES % 7.9 % (4.4-11.3); NEUTROPHILS # (AUTO) 10.9 (2.1-6.9); NEUTROPHILS % 75.8 % (38.7-80.0); PLATELET COUNT 328 x10e3/uL (140-360); RED BLOOD COUNT 4.01 x10e6/uL (3.6-5.1); RED CELL DISTRIBUTION WIDTH 13.9 % (11.7-14.4)
[2018-04-18 19:29] LABS: INR 1.02; PROTHROMBIN TIME 12.6 seconds (11.9-14.5)
[2018-04-18 19:30] LABS: PARTIAL THROMBOPLASTIN TIME 34.9 seconds (23.8-35.5)
[2018-04-18 19:40] LABS: ALANINE AMINOTRANSFERASE 13 IU/L (0-55); ALBUMIN/GLOBULIN RATIO 0.9 (0.8-2.0); ALKALINE PHOSPHATASE 73 IU/L (40-150); ANION GAP 16.9 mmol/L (8-16); BLOOD UREA NITROGEN 11 mg/dL (7-26); BUN/CREATININE RATIO 18 (6-25); CALCIUM 9.3 mg/dL (8.4-10.2); CARBON DIOXIDE 24 mmol/L (22-29); CHLORIDE 87 mmol/L (98-107); CREATINE KINASE 532 IU/L (29-168); CREATININE, SERUM 0.61 mg/dL (0.57-1.11); EST GLOMERULAR FILTRATION RATE > 60 ML/MIN (60-); GLUCOSE 96 mg/dL (74-118); MAGNESIUM 1.7 MG/DL (1.3-2.1); POTASSIUM 3.9 mmol/L (3.5-5.1); SODIUM 124 mmol/L (136-145)
[2018-04-18 19:59] VITALS: BP 153/72
[2018-04-18] MEDS ORDERED: AZO CRANBERRY1 EAC1 PO (21:21)
[2018-04-18 21:28] VITALS: BP 153/72
[2018-04-19] VITALS (8 sets, daily range): BP systolic 116–147; BP diastolic 58–70
[2018-04-19] MEDS ORDERED: POLYETHYLENE GLYCOL 3350 17 GM PACK PO PRN (09:30)
[2018-04-19] MEDS ORDERED: LORATADINE 10 MG TAB PO PRN (09:30)
[2018-04-19] MEDS: CEFTRIAXONE SOD 1 GM VIAL IV SCH (10:23)
[2018-04-19] MEDS: LEVETIRACETAM 500 MG TAB PO SCH ×2 (10:23→20:49)
[2018-04-19] MEDS: DEXTROSE 5%/0.45% SOD CHL 1,000 ML IV SCH ×2 (10:23→20:33)
[2018-04-19] MEDS: NYSTATIN 15 GM POWDER UD BTL TP SCH (18:25)
[2018-04-20] VITALS (8 sets, daily range): BP systolic 115–159; BP diastolic 57–75
[2018-04-20] MEDS: LEVOTHYROXINE SODIUM 50 MCG TAB PO SCH (05:25)
[2018-04-20] MEDS: DEXTROSE 5%/0.45% SOD CHL 1,000 ML IV SCH (05:25)
[2018-04-20 05:50] LABS: BASOPHILS # (AUTO) 0.1 (0.0-0.1); BASOPHILS % 0.4 % (0.0-1.0); EOSINOPHILS # (AUTO) 0.3 (0.0-0.4); HEMATOCRIT 26.5 % (34.2-44.1); HEMOGLOBIN 9.2 g/dL (12.0-16.0); LYMPHOCYTES # (AUTO) 1.4 (1.0-3.2); LYMPHOCYTES % 10.9 % (18.0-39.1); MEAN CORPUSCULAR HEMOGLOBIN 30.3 pg (28-32); MEAN CORPUSCULAR HGB CONC 34.7 g/dL (31-35); MEAN CORPUSCULAR VOLUME 87.2 fL (81-99); MONOCYTES # (AUTO) 1.1 (0.2-0.8); MONOCYTES % 8.7 % (4.4-11.3); NEUTROPHILS # (AUTO) 9.7 (2.1-6.9); NEUTROPHILS % 77.2 % (38.7-80.0); PLATELET COUNT 227 x10e3/uL (140-360); RED BLOOD COUNT 3.04 x10e6/uL (3.6-5.1); RED CELL DISTRIBUTION WIDTH 13.7 % (11.7-14.4)
[2018-04-20 06:08] LABS: ALANINE AMINOTRANSFERASE 10 IU/L (0-55); ALBUMIN 2.2 g/dL (3.5-5.0); ALKALINE PHOSPHATASE 53 IU/L (40-150); ANION GAP 11.2 mmol/L (8-16); BLOOD UREA NITROGEN 11 mg/dL (7-26); BUN/CREATININE RATIO 21 (6-25); CARBON DIOXIDE 25 mmol/L (22-29); CHLORIDE 90 mmol/L (98-107); CREATINE KINASE 202 IU/L (29-168); CREATININE, SERUM 0.53 mg/dL (0.57-1.11); EST GLOMERULAR FILTRATION RATE > 60 ML/MIN (60-); GLUCOSE 124 mg/dL (74-118); POTASSIUM 3.2 mmol/L (3.5-5.1); SODIUM 123 mmol/L (136-145)
[2018-04-20 07:59] LABS: BILIRUBIN,URINE NEGATIVE (NEGATIVE); CLARITY,URINE HAZY (CLEAR); COLOR,URINE YELLOW (YELLOW); KETONES,URINE 1+ (NEGATIVE); LEUKOCYTE ESTERASE ,URINE NEGATIVE (NEGATIVE); NITRITE,URINE NEGATIVE (NEGATIVE); PROTEIN,URINE DIPSTICK NEGATIVE (NEGATIVE); URINE UROBILINOGEN 0.2 mg/dL (0.2 - 1)
[2018-04-20 08:00] LABS: BACTERIA,URINE FEW /HPF; EPITHELIAL CELLS,URINE FEW /LPF; WBC,URINE (MAN) 0-5 /HPF (0-5)
[2018-04-20] MEDS: CEFTRIAXONE SOD 1 GM VIAL IV SCH (09:09)
[2018-04-20] MEDS: LEVETIRACETAM 500 MG TAB PO SCH ×2 (09:09→21:02)
[2018-04-20] MEDS: NYSTATIN 15 GM POWDER UD BTL TP SCH ×2 (09:09→17:08)
[2018-04-20] MEDS ORDERED: POTASSIUM CHLORIDE 20 MEQ TAB CR PO ONE (13:00)
[2018-04-20] MEDS: SODIUM CHLORIDE 0.9% 1000ML 1,000 ML IV SCH ×2 (13:16→21:02)
[2018-04-21] VITALS (8 sets, daily range): BP systolic 119–164; BP diastolic 59–69
[2018-04-21 05:55] LABS: ANION GAP 10.7 mmol/L (8-16); BLOOD UREA NITROGEN 9 mg/dL (7-26); BUN/CREATININE RATIO 18 (6-25); CALCIUM 8.2 mg/dL (8.4-10.2); CARBON DIOXIDE 24 mmol/L (22-29); CHLORIDE 94 mmol/L (98-107); CREATINE KINASE 121 IU/L (29-168); CREATININE, SERUM 0.51 mg/dL (0.57-1.11); EST GLOMERULAR FILTRATION RATE > 60 ML/MIN (60-); GLUCOSE 85 mg/dL (74-118); POTASSIUM 3.7 mmol/L (3.5-5.1); SODIUM 125 mmol/L (136-145)
[2018-04-21] MEDS: LEVOTHYROXINE SODIUM 50 MCG TAB PO SCH (06:21)
[2018-04-21 06:41] LABS: BASOPHILS % 0.4 % (0.0-1.0); EOSINOPHILS # (AUTO) 0.3 (0.0-0.4); EOSINOPHILS % 2.6 % (0.0-6.0); HEMOGLOBIN 9.1 g/dL (12.0-16.0); LYMPHOCYTES # (AUTO) 1.9 (1.0-3.2); LYMPHOCYTES % 16.5 % (18.0-39.1); MEAN CORPUSCULAR HEMOGLOBIN 29.4 pg (28-32); MEAN CORPUSCULAR HGB CONC 33.7 g/dL (31-35); MEAN CORPUSCULAR VOLUME 87.4 fL (81-99); MONOCYTES # (AUTO) 1.2 (0.2-0.8); MONOCYTES % 10.1 % (4.4-11.3); NEUTROPHILS # (AUTO) 7.9 (2.1-6.9); NEUTROPHILS % 69.4 % (38.7-80.0); PLATELET COUNT 262 x10e3/uL (140-360); RED BLOOD COUNT 3.09 x10e6/uL (3.6-5.1); RED CELL DISTRIBUTION WIDTH 13.9 % (11.7-14.4)
[2018-04-21] MEDS: SODIUM CHLORIDE 0.9% 1000ML 1,000 ML IV SCH ×2 (09:10→18:30)
[2018-04-21] MEDS: LEVETIRACETAM 500 MG TAB PO SCH ×2 (09:10→20:36)
[2018-04-21] MEDS: NYSTATIN 15 GM POWDER UD BTL TP SCH ×2 (09:10→16:55)
[2018-04-21] MEDS: CEFTRIAXONE SOD 1 GM VIAL IV SCH (09:22)
--- NOTE | 2018-04-21 13:36 | Diagnostic Imaging Report ---
EXAM: CHEST SINGLE (PORTABLE) DATE: 04/21/2018 11:46 AM INDICATION: \S\assess for pneumonia \[id number] \S\1301 \S\Y COMPARISON: 04/18/2018 FINDINGS: Image positioning limits evaluation. Right IJ catheter present tip overlying SVC. Granuloma left upper lobe. Square density overlies left lung base, not further localized. Patchy opacity present right lung base. IMPRESSION: Limited exam due to positioning. Right basilar opacity could represent pneumonia given history. Square density overlying left lung base, presumably artifactual/external. Signed by: Dr. Ashvin Negron MD on 04/21/2018 1:33 PM
[2018-04-21] MEDS: AZITHROMYCIN 500MG/NS 250 ML 250 ML IV SCH (20:36)
[2018-04-22] VITALS (7 sets, daily range): BP systolic 124–145; BP diastolic 60–76
[2018-04-22] MEDS: SODIUM CHLORIDE 0.9% 1000ML 1,000 ML IV SCH ×3 (04:30→20:09)
[2018-04-22] MEDS: LEVOTHYROXINE SODIUM 50 MCG TAB PO SCH (05:57)
[2018-04-22 06:43] LABS: BASOPHILS # (AUTO) 0.1 (0.0-0.1); BASOPHILS % 0.8 % (0.0-1.0); EOSINOPHILS # (AUTO) 0.3 (0.0-0.4); EOSINOPHILS % 2.7 % (0.0-6.0); HEMATOCRIT 26.9 % (34.2-44.1); LYMPHOCYTES % 18.7 % (18.0-39.1); MEAN CORPUSCULAR HEMOGLOBIN 29.9 pg (28-32); MEAN CORPUSCULAR HGB CONC 33.5 g/dL (31-35); MEAN CORPUSCULAR VOLUME 89.4 fL (81-99); MONOCYTES # (AUTO) 1.2 (0.2-0.8); MONOCYTES % 11.6 % (4.4-11.3); NEUTROPHILS # (AUTO) 6.9 (2.1-6.9); NEUTROPHILS % 65.3 % (38.7-80.0); PLATELET COUNT 256 x10e3/uL (140-360); RED BLOOD COUNT 3.01 x10e6/uL (3.6-5.1)
[2018-04-22 06:57] LABS: ANION GAP 10.1 mmol/L (8-16); BLOOD UREA NITROGEN 8 mg/dL (7-26); BUN/CREATININE RATIO 17 (6-25); CALCIUM 8.1 mg/dL (8.4-10.2); CARBON DIOXIDE 22 mmol/L (22-29); CHLORIDE 96 mmol/L (98-107); CREATININE, SERUM 0.48 mg/dL (0.57-1.11); EST GLOMERULAR FILTRATION RATE > 60 ML/MIN (60-); GLUCOSE 84 mg/dL (74-118); POTASSIUM 4.1 mmol/L (3.5-5.1); SODIUM 124 mmol/L (136-145)
[2018-04-22] MEDS: LEVETIRACETAM 500 MG TAB PO SCH ×2 (08:17→20:32)
[2018-04-22] MEDS: CEFTRIAXONE SOD 1 GM VIAL IV SCH (08:17)
[2018-04-22] MEDS: NYSTATIN 15 GM POWDER UD BTL TP SCH ×2 (08:17→17:08)
--- NOTE | 2018-04-22 12:38 | Diagnostic Imaging Report ---
PROCEDURE:X-RAY MODIFIED BARIUM SWALLOW COMPARISON:None. INDICATIONS:Not provided. DISCUSSION:Fluoroscopic examination was performed in conjunction with speech pathology, during swallowing of a variety of thin and thick liquid consistencies. Fluoroscopy time: 1:47 min Cumulative air kerma: 0.94 mGy CONCLUSION:Penetration and silent aspiration visualized. Please see the report from speech pathology for complete details. Dictated by: Heladio Romero M.D. on 04/22/2018 at 12:45 Electronically approved by: Heladio Romero M.D. on 04/22/2018 at 12:45
[2018-04-22] MEDS: ACETAMINOPHEN 325 MG TAB PO PRN (14:30)
[2018-04-22] MEDS: AZITHROMYCIN 500MG/NS 250 ML 250 ML IV SCH (20:32)
[2018-04-23] MEDS: SODIUM CHLORIDE 0.9% 1000ML 1,000 ML IV SCH ×2 (00:30→08:46)
[2018-04-23 00:41] VITALS: BP 120/62
[2018-04-23 04:00] VITALS: BP 138/81
[2018-04-23] MEDS: LEVOTHYROXINE SODIUM 50 MCG TAB PO SCH (06:00)
[2018-04-23 07:45] VITALS: BP 121/60
[2018-04-23] MEDS: CEFTRIAXONE SOD 1 GM VIAL IV SCH (08:45)
[2018-04-23] MEDS: LEVETIRACETAM 500 MG TAB PO SCH (08:45)
[2018-04-23] MEDS: NYSTATIN 15 GM POWDER UD BTL TP SCH ×2 (08:45→16:50)
[2018-04-23 12:07] VITALS: BP 145/66
[2018-04-23] MEDS: ACETAMINOPHEN 325 MG TAB PO PRN (15:20)
[2018-04-23 16:05] VITALS: BP 142/69
== END 2018-04-23 17:17 | DRG 178 ==
LOC: ER 16:20 → ERHOLD 17:24 → MED/SURG 19:51
DX: J69.0 Pneumonitis due to inhalation of food and vomit (principal); M62.82 Rhabdomyolysis; E87.1 Hypo-osmolality and hyponatremia; Z68.1 Body mass index [BMI] 19.9 or less, adult; E86.0 Dehydration; F03.90 Unspecified dementia, unspecified severity, without behavioral disturbance, psychotic disturbance, mood disturbance, and anxiety; E87.6 Hypokalemia; R62.7 Adult failure to thrive
CPT/HCPCS: 36415; 71045; 74230; 80048; 80053; 81001; 82550; 82553; 83735; 84484; 85025; 85610; 85730; 87040; 87086; 87493; 93005; 96361; 97139; 99284; J0456; J0696; J7030